=== PATIENT | female | born 1965 | race Caucasian/White ===

== ENCOUNTER 2020-04-11 11:34 | Outpatient (REF) | payer MEDICARE, MEDICAID, SELFPAY ==
[2020-04-11 12:49] LABS: MANUAL DIFF FLAG NO
[2020-04-11 13:03] LABS: Basophils Absolute Auto 0.1 X10*3/uL (0.0-0.2); Basophils Percent Auto 0.8 % (0-2); Eosinophils Absolute Auto 0.1 X10*3/uL (0.0-0.4); Eosinophils Percent Auto 1.5 % (0-4); Hematocrit 40.7 % (37-47); Hemoglobin 12.7 g/dl (12.0-16.0); Imm Gran Abs Auto 0.02 X10*3/uL (0.00-0.03); Imm Gran Pct Auto 0.3 % (0.0-0.4); Lymphocytes Absolute Auto 2.5 X10*3/uL (1.2-4.9); Lymphocytes Percent Auto 34.4 % (20-40); Mean Corpuscular HGB Conc 31.2 g/dl (31.0-35.0); Mean Corpuscular Hemoglobin 28.3 pg (27.0-33.0); Mean Corpuscular Volume 90.6 fL (80-98); Mean Platelet Volume 10.7 fL (9.4-12.3); Monocytes Absolute Auto 0.5 X10*3/uL (0.1-1.2); Monocytes Percent Auto 7.1 % (2-11); Neutrophils Absolute Auto 4.1 X10*3/uL (2.0-8.3); Neutrophils Percent Auto 55.9 % (45-73); Platelet Count 219 X10*3/uL (160-400); Red Blood Count 4.49 X10*6/uL (4.20-5.50); Red Cell Distribution Width 13.7 % (11.0-16.0); White Blood Count 7.3 X10*3/uL (4.8-10.8)
[2020-04-11 13:20] LABS: Glucose Urine UA NEG (NEG); Leukocyte Esterase Urine NEG (NEG); Nitrite Urine NEG (NEG); Urine Blood NEG (NEG); Urine Ketones NEG (NEG); Urine Protein NEG (NEG-TRACE)
[2020-04-11 13:21] LABS: Alanine Aminotransferase 33 U/L (0-31); Albumin Level 4.5 g/dL (3.5-5.0); Alkaline Phosphatase 45 U/L (39-117); Anion Gap 14 (12-20); Aspartate Amino Transferase 33 U/L (5-31); Bilirubin Total 0.8 mg/dL (0.0-1.0); Blood Urea Nitrogen 13 mg/dL (9-16); Calcium 9.1 mg/dL (8.4-10.2); Carbon Dioxide 27 mmol/L (22-29); Chloride 103 mmol/L (96-108); Cholesterol 152 mg/dL; Estimated Glomerular Filt Rate > 60; Glucose Fasting 81 mg/dL (60-99); HDL Cholesterol 40 mg/dL; LDL Cholesterol Calculated 76 mg/dl; Potassium 4.2 mmol/l (3.3-5.1); Sodium 140 mmol/L (135-145); Total Protein 7.3 g/dL (6.5-8.0); Triglycerides 182 mg/dL
[2020-04-11 13:22] LABS: Appearance Urine CLEAR; Color Urine YELLOW
[2020-04-11 13:44] LABS: TSH reflex Free T4 2.16 mIU/mL (0.32-4.0); Vitamin D 25-OH Total 11.5 ng/mL (>30)
[2020-04-11 13:45] LABS: Erythrocyte Sedimentation Rate 9 MM/HR (0-20)
[2020-04-11 14:03] LABS: Folate 9.1 ng/mL (> or = 4.0); Vitamin B12 221 pg/mL (200-900)
== END 2020-04-11 11:35 | disposition home or self-care (01) ==
LOC: HO.LAB 11:34
PROVIDERS: PCP Internal Medicine; Visit Provider Internal Medicine
DX: I10 Essential (primary) hypertension (principal); E78.5 Hyperlipidemia, unspecified; R73.01 Impaired fasting glucose; I25.10 Atherosclerotic heart disease of native coronary artery without angina pectoris; E53.8 Deficiency of other specified B group vitamins; R41.3 Other amnesia; K31.9 Disease of stomach and duodenum, unspecified; M51.37 Other intervertebral disc degeneration, lumbosacral region; M50.20 Other cervical disc displacement, unspecified cervical region; R32 Unspecified urinary incontinence; E55.9 Vitamin D deficiency, unspecified; E66.9 Obesity, unspecified
CPT/HCPCS: 36415; 80053; 80061; 81003; 82306; 82607; 82746; 84443; 85025; 85652

== ENCOUNTER → 2020-07-18 14:37 | Outpatient (BNVA) | payer MEDICARE, MEDICAID, SELFPAY | PROVIDERS: PCP Internal Medicine; Visit Provider Internal Medicine | DX: R00.2 Palpitations (principal); R42 Dizziness and giddiness; R07.89 Other chest pain; I10 Essential (primary) hypertension; I25.3 Aneurysm of heart | CPT/HCPCS: 93005; 99212 ==

== ENCOUNTER 2021-01-22 11:49 | Outpatient (REF) | payer MEDICARE, MEDICAID, SELFPAY ==
--- NOTE | ~2021-01-22 | XR_ITS ---
EXAMINATION: XR MANDIBLE CLINICAL INFORMATION: Jaw pain. COMPARISON: None TECHNIQUE: Four views of the mandible were obtained. FINDINGS: No acute finding on the imaging submitted. The oblique imaging is suboptimal. The mandibular condyles are not adequately evaluated. They do appear to lie within the fossa. XR/XR mandible <4V IMPRESSION: Limited evaluation. There is certainly no acute finding seen here. The condyles cannot be adequately evaluated for degeneration but appear to lie within the condylar fossa s
[2021-01-22 12:58] LABS: MANUAL DIFF FLAG NO
[2021-01-22 13:04] LABS: Basophils Percent Auto 0.4 % (0-2); Eosinophils Absolute Auto 0.2 X10*3/uL (0.0-0.4); Eosinophils Percent Auto 1.6 % (0-4); Hematocrit 38.1 % (37-47); Hemoglobin 12.2 g/dl (12.0-16.0); Imm Gran Abs Auto 0.04 X10*3/uL (0.00-0.03); Imm Gran Pct Auto 0.4 % (0.0-0.4); Lymphocytes Absolute Auto 2.6 X10*3/uL (1.2-4.9); Lymphocytes Percent Auto 27.9 % (20-40); Mean Corpuscular Volume 87.6 fL (80-98); Mean Platelet Volume 10.3 fL (9.4-12.3); Monocytes Absolute Auto 0.6 X10*3/uL (0.1-1.2); Monocytes Percent Auto 6.7 % (2-11); Neutrophils Absolute Auto 5.9 X10*3/uL (2.0-8.3); Platelet Count 242 X10*3/uL (160-400); Red Blood Count 4.35 X10*6/uL (4.20-5.50); Red Cell Distribution Width 13.6 % (11.0-16.0); White Blood Count 9.4 X10*3/uL (4.8-10.8)
[2021-01-22 13:26] LABS: Alanine Aminotransferase 22 U/L (0-31); Albumin Level 4.7 g/dL (3.5-5.0); Alkaline Phosphatase 54 U/L (39-117); Anion Gap 13 (12-20); Aspartate Amino Transferase 22 U/L (5-31); Bilirubin Total 0.4 mg/dL (0.0-1.0); Blood Urea Nitrogen 15 mg/dL (9-16); Calcium 9.7 mg/dL (8.4-10.2); Carbon Dioxide 25 mmol/L (22-29); Chloride 104 mmol/L (96-108); Cholesterol 145 mg/dL; Estimated Glomerular Filt Rate > 60; Glucose Fasting 74 mg/dL (60-99); HDL Cholesterol 39 mg/dL; LDL Cholesterol Calculated 78 mg/dl; Sodium 138 mmol/L (135-145); Total Protein 7.8 g/dL (6.5-8.0); Triglycerides 143 mg/dL
[2021-01-22 13:41] LABS: Vitamin D 25-OH Total 9.7 ng/mL (>30)
[2021-01-22 14:34] LABS: Folate 11.1 ng/mL (> or = 4.0); Vitamin B12 229 pg/mL (200-900)
== END 2021-01-22 11:50 | disposition home or self-care (01) ==
LOC: HO.LAB 11:49
PROVIDERS: PCP Internal Medicine; Visit Provider Internal Medicine
DX: R68.84 Jaw pain (principal); E55.9 Vitamin D deficiency, unspecified; E78.2 Mixed hyperlipidemia; I10 Essential (primary) hypertension; I25.10 Atherosclerotic heart disease of native coronary artery without angina pectoris; R73.01 Impaired fasting glucose; E53.8 Deficiency of other specified B group vitamins; K21.9 Gastro-esophageal reflux disease without esophagitis
CPT/HCPCS: 36415; 70100; 80053; 80061; 82306; 82607; 82746; 85025

== ENCOUNTER 2021-10-22 07:12 | Outpatient (REF) | payer MEDICARE, MEDICAID, SELFPAY ==
[2021-10-22 07:48] LABS: MANUAL DIFF FLAG NO
[2021-10-22 08:34] LABS: Basophils Absolute Auto 0.1 X10*3/uL (0.0-0.2); Basophils Percent Auto 0.5 % (0-2); Eosinophils Absolute Auto 0.1 X10*3/uL (0.0-0.4); Eosinophils Percent Auto 1.5 % (0-4); Hematocrit 36.7 % (37.0-47.0); Hemoglobin 11.4 g/dl (12.0-16.0); Imm Gran Abs Auto 0.03 X10*3/uL (0.00-0.03); Imm Gran Pct Auto 0.3 % (0.0-0.4); Lymphocytes Absolute Auto 2.1 X10*3/uL (1.2-4.9); Lymphocytes Percent Auto 22.3 % (20-40); Mean Corpuscular HGB Conc 31.1 g/dl (31.0-35.0); Mean Corpuscular Hemoglobin 26.8 pg (27.0-33.0); Mean Corpuscular Volume 86.2 fL (80.0-98.0); Monocytes Absolute Auto 0.6 X10*3/uL (0.1-1.2); Monocytes Percent Auto 6.5 % (2-11); Neutrophils Absolute Auto 6.5 x10*3/uL (2.0-8.3); Neutrophils Percent Auto 68.9 % (45-73); Platelet Count 178 X10*3/uL (160-400); Red Blood Count 4.26 X10*6/uL (4.20-5.50); Red Cell Distribution Width 13.9 % (11.0-16.0); White Blood Count 9.4 X10*3/uL (4.8-10.8)
[2021-10-22 08:46] LABS: Appearance Urine HAZY; Color Urine YELLOW; Glucose Urine UA NEG (NEG); Leukocyte Esterase Urine 1+ (NEG); Nitrite Urine POS (NEG); UACC Culture Trigger YES; Urine Blood NEG (NEG); Urine Ketones NEG (NEG); Urine Protein NEG (NEG-TRACE)
[2021-10-22 09:07] LABS: Bacteria Urine 4+ /LPF; Squamous Epithelial Cell Urine 1+ /LPF
[2021-10-22 09:08] LABS: RBC Urine 0 /HPF (0)
[2021-10-22 09:09] LABS: Alanine Aminotransferase 21 U/L (0-31); Albumin Level 4.2 g/dL (3.5-5.0); Alkaline Phosphatase 37 U/L (39-117); Anion Gap 14 (12-20); Aspartate Amino Transferase 31 U/L (5-31); Bilirubin Total 0.3 mg/dL (0.0-1.0); Blood Urea Nitrogen 13 mg/dL (9-16); Calcium 9.4 mg/dL (8.4-10.2); Carbon Dioxide 22 mmol/L (22-29); Chloride 107 mmol/L (96-108); Cholesterol 148 mg/dL; Estimated Glomerular Filt Rate 57; Glucose Fasting 98 mg/dL (60-99); HDL Cholesterol 37 mg/dL; LDL Cholesterol Calculated 86 mg/dl; Potassium 4.6 mmol/L (3.3-5.1); Sodium 138 mmol/L (135-145); Triglycerides 126 mg/dL
[2021-10-22 09:32] LABS: TSH reflex Free T4 4.38 uIU/mL (0.32-4.0)
[2021-10-22 09:39] LABS: Folate 8.5 ng/mL (> or = 4.0); Vitamin B12 175 pg/mL (200-900)
[2021-10-22 10:35] LABS: Free T4 (Free Thyroxine) 0.74 ng/dL (0.71-1.85)
== END 2021-10-22 07:13 | disposition home or self-care (01) ==
LOC: HO.LAB 07:12
PROVIDERS: PCP Internal Medicine; Visit Provider Internal Medicine
DX: I10 Essential (primary) hypertension (principal); E53.8 Deficiency of other specified B group vitamins; E55.9 Vitamin D deficiency, unspecified; E78.00 Pure hypercholesterolemia, unspecified; R82.71 Bacteriuria; B96.1 Klebsiella pneumoniae [K. pneumoniae] as the cause of diseases classified elsewhere
CPT/HCPCS: 36415; 80053; 80061; 81001; 82306; 82607; 82746; 84439; 84443; 85025; 87086; 87088; 87186

== ENCOUNTER 2022-04-24 07:53 | Outpatient (REF) | payer MEDICARE, MEDICAID, SELFPAY ==
--- NOTE | ~2022-04-24 | XR_ITS ---
EXAMINATION: XR CHEST CLINICAL INFORMATION: Bronchitis COMPARISON: Previous chest x-ray most recent February 2015 TECHNIQUE: 2 views of the chest were obtained. FINDINGS: The cardiac and mediastinal contours are stable. The lungs are clear. There is no pleural effusion or pneumothorax. There are degenerative changes of the thoracic spine. XR/XR chest 2V IMPRESSION: No evidence for acute disease in the chest.
[2022-04-24 08:03] LABS: MANUAL DIFF FLAG NO
[2022-04-24 08:21] LABS: Basophils Absolute Auto 0.1 X10*3/uL (0.0-0.2); Basophils Percent Auto 0.8 % (0-2); Eosinophils Absolute Auto 0.2 X10*3/uL (0.0-0.4); Eosinophils Percent Auto 1.8 % (0-4); Hematocrit 38.9 % (37.0-47.0); Hemoglobin 12.4 g/dl (12.0-16.0); Imm Gran Abs Auto 0.04 X10*3/uL (0.00-0.03); Imm Gran Pct Auto 0.5 % (0.0-0.4); Lymphocytes Percent Auto 47.2 % (20-40); Mean Corpuscular HGB Conc 31.9 g/dl (31.0-35.0); Mean Corpuscular Hemoglobin 28.2 pg (27.0-33.0); Mean Corpuscular Volume 88.4 fL (80.0-98.0); Mean Platelet Volume 10.8 fL (9.4-12.3); Monocytes Absolute Auto 0.7 X10*3/uL (0.1-1.2); Neutrophils Absolute Auto 3.5 x10*3/uL (2.0-8.3); Neutrophils Percent Auto 41.7 % (45-73); Platelet Count 227 X10*3/uL (160-400); Red Cell Distribution Width 14.4 % (11.0-16.0); White Blood Count 8.5 X10*3/uL (4.8-10.8)
[2022-04-24 09:09] LABS: Appearance Urine Clear; Color Urine Yellow; Glucose Urine UA Negative (Negative); Leukocyte Esterase Urine Trace (Negative); Nitrite Urine Positive (Negative); PH 6.5 (5.0-9.0); UMIC TRIGGER UACC YES; Urine Blood Negative (Negative); Urine Ketones Negative (Negative); Urine Protein Negative (Neg-Trace)
[2022-04-24 09:12] LABS: Alanine Aminotransferase 63 U/L (0-31); Albumin Level 4.3 g/dL (3.5-5.0); Alkaline Phosphatase 58 U/L (39-117); Anion Gap 15 (12-20); Aspartate Amino Transferase 69 U/L (5-31); Bilirubin Total 0.7 mg/dL (0.0-1.0); Blood Urea Nitrogen 12 mg/dL (9-16); Calcium 9.1 mg/dL (8.4-10.2); Carbon Dioxide 22 mmol/L (22-29); Chloride 106 mmol/L (96-108); Cholesterol 136 mg/dL; Estimated Glomerular Filt Rate > 60; Glucose Fasting 89 mg/dL (60-99); HDL Cholesterol 36 mg/dL; LDL Cholesterol Calculated 67 mg/dl; Potassium 4.8 mmol/L (3.3-5.1); Sodium 138 mmol/L (135-145); TSH reflex Free T4 5.92 uIU/mL (0.32-4.0); Total Protein 7.2 g/dL (6.5-8.0); Triglycerides 169 mg/dL; Vitamin D 25-OH Total 13.7 ng/mL (>30)
[2022-04-24 09:14] LABS: Bacteria Urine 4+ (None Seen); RBC Urine 0-2 /HPF (0-2); Squamous Epithelial Cell Urine 0-2 /HPF (0-2); UACC Culture Trigger YES; WBC Urine 0-5 /HPF (0-5)
[2022-04-24 09:48] LABS: Free T4 (Free Thyroxine) 0.79 ng/dL (0.71-1.85)
== END 2022-04-24 07:54 | disposition home or self-care (01) ==
LOC: HO.XRAY 07:53
PROVIDERS: Absent Provider Physician Assistant; PCP Internal Medicine; Visit Provider Internal Medicine
DX: E55.9 Vitamin D deficiency, unspecified (principal); E78.00 Pure hypercholesterolemia, unspecified; I10 Essential (primary) hypertension; J40 Bronchitis, not specified as acute or chronic; R79.89 Other specified abnormal findings of blood chemistry; R82.71 Bacteriuria; B96.1 Klebsiella pneumoniae [K. pneumoniae] as the cause of diseases classified elsewhere
CPT/HCPCS: 36415; 71046; 80053; 80061; 81001; 81003; 82306; 84439; 84443; 85025; 87086; 87088; 87186

== ENCOUNTER 2022-10-27 07:05 | Outpatient (REF) | payer MEDICARE, MEDICAID, SELFPAY ==
--- NOTE | ~2022-10-27 | XR_ITS ---
EXAMINATION: XR CHEST CLINICAL INFORMATION: Cough. COMPARISON: Chest x-ray 04/24/2022 TECHNIQUE: 2 views of the chest were obtained. FINDINGS: The lungs are well-expanded and clear of acute process. The heart size and pulmonary vascularity is normal. No gross bony abnormality. XR/XR chest 2V IMPRESSION: Unremarkable chest exam. No change from previous exam of 04/24/2022.
[2022-10-27 08:17] LABS: Alanine Aminotransferase 33 U/L (0-31); Albumin Level 4.3 g/dL (3.5-5.0); Alkaline Phosphatase 53 U/L (39-117); Anion Gap 13 (12-20); Aspartate Amino Transferase 31 U/L (5-31); Bilirubin Total 0.7 mg/dL (0.0-1.0); Blood Urea Nitrogen 12 mg/dL (9-16); Calcium 9.5 mg/dL (8.4-10.2); Carbon Dioxide 24 mmol/L (22-29); Chloride 108 mmol/L (96-108); Cholesterol 148 mg/dL; Estimated Glomerular Filt Rate > 60; Glucose Fasting 112 mg/dL (60-99); HDL Cholesterol 39 mg/dL; LDL Cholesterol Calculated 78 mg/dl; Potassium 4.6 mmol/L (3.3-5.1); Sodium 140 mmol/L (135-145); Triglycerides 155 mg/dL
[2022-10-27 08:35] LABS: TSH reflex Free T4 2.33 uIU/mL (0.32-4.0); Vitamin D 25-OH Total 21.7 ng/mL (>30)
[2022-10-27 10:41] LABS: Appearance Urine Turbid; Color Urine Dark Yellow; Glucose Urine UA Negative (Negative); Leukocyte Esterase Urine Large (3+) (Negative); Nitrite Urine Positive (Negative); PH >= 9.0 (5.0-9.0); UMIC TRIGGER UACC YES; Urine Blood Negative (Negative); Urine Ketones Negative (Negative); Urine Protein 30 (1+) mg/dL (Neg-Trace)
[2022-10-27 10:55] LABS: Bacteria Urine 4+ (None Seen); Other Crystals Urine Present; RBC Urine 0-2 /HPF (0-2); Squamous Epithelial Cell Urine 0-2 /HPF (0-2); UACC Culture Trigger YES; WBC Urine 21-50 /HPF (0-5)
== END 2022-10-27 07:06 | disposition home or self-care (01) ==
LOC: HO.LAB 07:05
PROVIDERS: PCP Internal Medicine; Visit Provider Nurse Practitioner Family
DX: E55.9 Vitamin D deficiency, unspecified (principal); R05.8 Other specified cough; N39.0 Urinary tract infection, site not specified; R30.0 Dysuria; R05.9 Cough, unspecified; R94.6 Abnormal results of thyroid function studies; E66.9 Obesity, unspecified; E78.2 Mixed hyperlipidemia
CPT/HCPCS: 36415; 71046; 80053; 80061; 81001; 82306; 84443; 87086; 87088; 87186

== ENCOUNTER 2023-04-02 11:29 | Outpatient (AMB) | payer MEDICARE, MEDICAID, SELFPAY ==
[2023-04-02 11:31] VITALS: BP 122/80; PULSE 64; O2SAT 96; BMI 37.0
--- NOTE | 2023-04-02 11:31 | MHC.PC.OV ---
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 Accompanied by: Self / Same As Patient Allergies Sulfa (Sulfonamide Antibiotics) Allergy (Unknown, Verified 04/03/23 06:29) Unknown aripiprazole [From ABILIFY] Adverse Reaction (Severe, Verified 04/03/23 06:29) hallucinations ketorolac [From Toradol] Adverse Reaction (Intermediate, Verified 04/03/23 06:29) shakes/tremors Medication List - Last Reconciled 04/03/23 by Tu Sheffield MD amitriptyline 100 mg PO BEDTIME amlodipine 10 mg PO DAILY amoxicillin 875 mg PO BID 7 days amoxicillin-pot clavulanate 875-125 mg 1 tab PO BID 7 days aspirin 81 mg PO DAILY 90 days atenolol 50 mg PO DAILY baclofen 20 mg PO TID-QID PRN 90 days [Bladder Control Pads Extra Absorb (Incontinence pads) As directed TID-QID] blood pressure monitor As directed buspirone 5 mg PO BID 90 days cholecalciferol (vitamin D3) 50 mcg PO DAILY cyanocobalamin (vitamin B-12) ER 1,000 mcg PO DAILY famotidine 20 mg PO DAILY 90 days fenofibrate micronized 134 mg PO DAILY hospital bed As directed levofloxacin 500 mg PO DAILY losartan 100 mg PO DAILY miscellaneous medical supply 1 ea miscellaneous DAILY miscellaneous medical supply 1 ea miscellaneous DAILY miscellaneous medical supply 2 ea miscellaneous .QIDHS miscellaneous medical supply 1 ea miscellaneous TID-QID morphine ER 60 mg PO Q12H 28 days nitrofurantoin monohyd/m-cryst 100 mg 100 mg PO .QD 90 days [OXYGEN Use at 2 LPM per nasal cannula As directed] pantoprazole 40 mg PO DAILY 90 days Percocet 10-325 mg (oxycodone-acetaminophen) 1 tab PO Q6H PRN 28 days NS potassium chloride ER 10 mEq PO BID promethazine 25 mg PO TID PRN 30 days sertraline 200 mg (2 x 100 mg) PO DAILY 90 days simvastatin 5 mg PO BEDTIME 90 days spironolactone 25 mg PO DAILY 90 days [WIG As directed] Tobacco use date assessed: 04/02/23 Dental Screening Dental Screen Date: 04/02/23 Did you have a dental visit in the last 12 months?: No Did you have a dental problem in the last 6 months where you did not have access to dental care?: No Was dental information given to patient?: No HPI pain on right side of cheek/face HPI Details Patient comes in today complaining of experiencing on and off electric-like shock sensations on the right side of her face x 1 week Notes that the eyesight in her right eye has been declining over the past month or so but she denies any eye pain - does not know if this is related to her right facial symptoms or not States that the right side of her face looks slightly puffy lately She still has chronic OJEDA - notes that these have been occurring more frequently lately and more often on the right side than before Is not sure what to make of her symptoms and she is very anxious about these She denies any dizziness Denies any chest pains, no shortness of breath No nausea /vomiting, no abdominal pain No change in bowel habits noted States that she will be needing her Percocet Rx refilled today [facility] Medical History Atrial septal aneurysm Palpitations Obesity (BMI 30-39.9) Depression Anxiety Posttraumatic stress disorder Insomnia Urinary incontinence Memory impairment Vitamin D deficiency Osteoarthritis Allergic rhinitis GERD without esophagitis Bulging of cervical intervertebral disc Vitamin B12 deficiency Migraine Coronary atherosclerosis Impaired fasting glucose Mixed hyperlipidemia Benign essential hypertension Degeneration of lumbar or lumbosacral intervertebral disc Surgical History History of lumbar surgery History of laparoscopic cholecystectomy History of total abdominal hysterectomy and bilateral salpingo-oophorectomy (~1997) History of appendectomy Family History Father Stroke Cancer CVD (cardiovascular disease) Mother CVD (cardiovascular disease) Stroke Sister Non-small cell lung cancer Brother Glioma of brain Other Mental health problem Social History Housing: Apartment Alcohol intake: never Patient Tobacco Use Status: Former Tobacco user Tobacco use type: Cigarette e-Cigarette/Vaping Use: Never Used Second Hand Smoke Exposure: Yes service: No Current occupational status: disabled Cognitive needs: Yes Hearing needs: No Vision needs: Yes Questionnaire PHQ-9 Over the last 2 weeks, how often have you been bothered by any of the following problems? 1. Little interest or pleasure in doing things: not at all 2. Feeling down, depressed, or hopeless: not at all 3. Trouble falling or staying asleep, or sleeping too much: not at all 4. Feeling tired or having little energy: not at all 5. Poor appetite or overeating: not at all 6. Feeling bad about yourself - or that you are a failure or have let yourself or your family down: not at all 7. Trouble concentrating on things, such as reading the newspaper or watching television: not at all 8. Moving or speaking so slowly that other people could have noticed. Or the opposite - being so fidgety or restless that you have been moving around a lot more than usual: not at all 9. Thoughts that you would be better off or of hurting yourself in some way: not at all Total score: 0 Depression Screening Interpretation: Negative (is on Rx) Depression Screening Done: Yes 21216 - PHQ-9 Billing: Yes Source: Developed by Drs. Babatunde Wagner, Deana Hart, Vernon Medina and colleagues, with an educational janet from [employer]. Thrive Questionnaire Date Thrive assessed: 04/02/23 I am a: Patient What is your living situation today?: I have a steady place to live Within the past 12 months, did the food you bought not last and you didn't have the money to get more?: Never true Within the past 12 months, did you worry whether your food would run out before you got money to buy more?: Never true Do you have trouble paying for medicines?: No Do you have trouble getting transportation to medical appointments?: No Do you have trouble paying your heating and electricity bill?: No Do you have trouble taking care of your child, family member or friend?: No Do you have trouble with day-to-day activities such as bathing, preparing meals, shopping, managing finances, etc.?: No Are you currently unemployed and looking for a job?: No Are you interested in more education?: No Please select the resources that you would like help with: None Currently or been in a relationship where the following occur: no concerns reported AUDIT C Alcohol Use Questionnaire (AUDIT-C) 1. How often do you have a drink containing alcohol?: Never Total Score: 0 Score Reviewed/Action Taken: Yes KANDI-7 AMB Questionnaire KANDI-7 Date KANDI - 7 assessed: 04/02/23 Feeling nervous, anxious, or on edge: 2 = More than half the days Not being able to stop or control worryin = Not at all Worrying too much about different things: 1 = Several days Trouble relaxin = Not at all Being so restless that it is hard to sit still: 0 = Not at all Becoming easily annoyed or irritable: 2 = More than half the days Feeling afraid as if something awful might happen: 1 = Several days Total KANDI-7 score (0-4 normal; 5-9 mild; 10-14 moderate; 15-21 severe): 6 Source: Developed by Drs. Babatunde Wagner, Deana Hart, Vernon Medina and colleagues, with an educational janet from [employer]. KANDI-7 Assessment Billing KANDI-7 Assessment Tool: KANDI-7 Assessment 07532 Review of Systems Const Reports fatigue, Denies fever(s) and Reports headache(s) (on and off, more often on the right side of her head lately) Eyes Reports blurry vision (in the right eye) ENT Denies dysphagia, Denies dizziness, Denies otalgia, Reports headache(s) (on and off, more often on the right side of her head lately), Reports neck pain, Denies odynophagia and Denies sore throat Card Denies chest pain, Denies irregular heart rhythm, Denies palpitations and Reports dyspnea on exertion (mild) Resp Reports cough (recurrent, coughs up minimal yellowish phlegm), Reports dyspnea on exertion (mild) and Denies wheezing GI Denies abdominal pain, Denies constipation, Denies dysphagia, Denies diarrhea, Denies nausea, Denies odynophagia and Denies vomiting Denies difficulty voiding, Denies nocturia, Denies dysuria, Reports urinary incontinence and Reports urinary urgency Musc Reports back pain (increased) and Reports neck pain Skin/Breast Denies rash Neuro Denies dizziness, Reports headache(s) (on and off, more often on the right side of her head lately), Reports radicular pain (in the left lower extremity) and Reports paresthesias (over the right side of her face and head for the past week) Endo Reports fatigue and Denies palpitations Aller/Immun Denies wheezing Physical exam (Primary Care) Vital Signs: Last Vital Signs Pulse 64 04/02/23 11:31 BP 122/80 04/02/23 11:31 Pulse Ox 96 04/02/23 11:31 Oxygen Delivery Method Room Air 04/02/23 11:31 BMI result Body Mass Index 37.0 Tobacco/Smoking Status: Tobacco use Status Tobacco use date assessed 04/02/23 04/02/23 11:37 Patient Tobacco Use Status Former Tobacco user 04/02/23 11:37 Tobacco use type Cigarette 04/02/23 11:37 e-Cigarette/Vaping Use Never Used 04/02/23 11:37 PHQ-9: PHQ-9 Score PHQ-9: Total score 0 04/02/23 12:20 Depression Screening Interpretation: Negative (is on Rx) Thrive Assessment: Date of Thrive Assessment Date Thrive assessed 04/02/23 04/02/23 11:37 Currently or been in a relationship where the following occur: no concerns reported Const General: no acute distress and alert HENMT Other: (+) slight congestion/swelling noted on the right side of the face Ears: TM's normal bilaterally and EAC's normal Throat: Yes posterior oropharynx normal and Yes tonsils normal (no TP congestion) Neck Neck: Yes no lymphadenopathy and Yes supple Resp Auscultation: clear to auscultation bilaterally, no rales and no wheezes Cardio Rate: regular rate Rhythm: regular rhythm Heart sounds: no murmurs GI Palpation (GI): Soft to palpation and nontender Auscultation: normal bowel sounds Back/Spine/Pelvis Cervical Spine: Cervical spine tenderness Thoracic/Lumbar Spine: lumbar spinal tenderness (chronic) Skin Rashes: no rashes Extrem General: Yes no clubbing, cyanosis or edema Assessment and Plan Assessment & Plan (1) Paresthesia: Code(s): R20.2 - Paresthesia of skin Plan: Involving the right side of the head and face Will send patient for some labs, including a Lyme disease titer, ESR and HSV titers CHIQUITA for further evaluation Is advised that further treatment or recommendations will be provided once her lab results are available for review before the weekend (2) Coronary atherosclerosis: Code(s): I25.10 - Atherosclerotic heart disease of [place] coronary artery without angina pectoris Qualifiers: Coronary Disease-Associated Artery/Lesion type: [place] artery [place] vs. transplanted heart: [place] heart Associated angina: without angina Qualified Code(s): I25.10 - Atherosclerotic heart disease of [place] coronary artery without angina pectoris Plan: Coronary CTA done at [facility] a couple of years ago?reportedly came out normal Patient also has had numerous cardiac workups done over the past couple of years, including stress testing - all of her tests have come back normal so far Continue Aspirin 81 mg QD Follow-up with cardiology as scheduled (3) Benign essential hypertension: Code(s): I10 - Essential (primary) hypertension Plan: Reinforced low-sodium diet -? goal is systolic BP of at least 120 to 130 mm or less Continue Amlodipine 10 mg QD, Losartan 100 mg QD, Atenolol 50 mg QD and Spironolactone 25 mg QD (4) Degeneration of lumbar or lumbosacral intervertebral disc: Code(s): M51.37 - Other intervertebral disc degeneration, lumbosacral region Plan: Reinforced activity and weight lifting restrictions to avoid aggravating her back pain Continue Morphine ER 60 mg every 12 hours and? Percocet 10-325 mg 1 tablet 3 times a day as needed for breakthrough pain (Rx refilled) (5) Migraine: Code(s): G43.909 - Migraine, unspecified, not intractable, without status migrainosus Qualifiers: Migraine type: unspecified Status migrainosus presence: without status migrainosus Intractability: not intractable Qualified Code(s): G43.909 - Migraine, unspecified, not intractable, without status migrainosus Plan: Continue Fioricet 1 tablet 2 to 3 times a day as needed Patient is also on Amitriptyline 100 mg daily at bedtime for headache prophylaxis Follow-up with Neurology as scheduled (6) Vitamin B12 deficiency: Code(s): E53.8 - Deficiency of other specified B group vitamins Plan: Continue Vitamin B12 tablets 1000 mg QD Will recheck her Vitamin B12 level as scheduled next month for follow up (7) Allergic rhinitis: Code(s): J30.9 - Allergic rhinitis, unspecified Qualifiers: Allergic rhinitis trigger: pollen Allergic rhinitis seasonality: unspecified Qualified Code(s): J30.1 - Allergic rhinitis due to pollen Plan: Continue Loratadine 10 mg QD PRN and Fluticasone nasal spray QD PRN (8) Insomnia: Code(s): G47.00 - Insomnia, unspecified Qualifiers: Insomnia type: unspecified Qualified Code(s): G47.00 - Insomnia, unspecified Plan: Sleep hygiene reinforced Continue Amitriptyline 100 mg daily at bedtime (9) Posttraumatic stress disorder: Code(s): F43.10 - Post-traumatic stress disorder, unspecified Plan: Continue Sertraline 100 mg 2 tablets daily (10) Anxiety: Code(s): F41.9 - Anxiety disorder, unspecified Plan: Continue Lorazepam 2 mg once a day in AM as needed Sertraline also helps with her anxiety (11) Depression: Code(s): F32.9 - Major depressive disorder, single episode, unspecified Qualifiers: Depression Type: major depressive disorder Major depression recurrence: recurrent Active/Remission status: currently active Major depression episode severity: unspecified Qualified Code(s): F33.9 - Major depressive disorder, recurrent, unspecified Plan: Continue Sertraline 200 mg QD Follow-up with Psychiatry as scheduled (12) Obesity (BMI 30-39.9): Code(s): E66.9 - Obesity, unspecified Plan: Reinforced diet/exercise as tolerated/lose weight although her activity and exercise tolerance, which used to be already low/poor, is mostly non-existent now since her recent bout with COVID and her current hypoxemia issues Plan Follow up as scheduled next month Orders: Orders HSV I and II,[facility] 04/02/23 R20.2 - Paresthesia of skin Basic Metabolic Panel 04/02/23 R20.2 - Paresthesia of skin Lyme IgG/IgM w/reflex to WB 04/02/23 R20.2 - Paresthesia of skin, W57.XXXA - Bitten or stung by nonvenomous insect and other nonvenomous arthropods, initial encounter Erythrocyte Sedimentation Rate 04/02/23 M79.7 - Fibromyalgia, R20.2 - Paresthesia of skin Vitamin B12 and Folate 04/02/23 E53.8 - Deficiency of other specified B group vitamins, R20.2 - Paresthesia of skin Complete Blood Count Auto Diff 04/02/23 I10 - Essential (primary) hypertension, R20.2 - Paresthesia of skin Coding Level of Care Code Est Pt Level 4 (90008) Diagnoses Paresthesia R20.2 Atherosclerosis of [place] coronary artery of [place] heart without angina pectoris I25.10 Coronary Disease-Associated Artery/Lesion type: [place] artery [place] vs. transplanted heart: [place] heart Associated angina: without angina Benign essential hypertension I10 Degeneration of lumbar or lumbosacral intervertebral disc M51.37 Migraine without status migrainosus, not intractable, unspecified migraine type G43.909 Migraine type: unspecified Status migrainosus presence: without status migrainosus Intractability: not intractable Vitamin B12 deficiency E53.8 Allergic rhinitis due to pollen, unspecified seasonality J30.1 Allergic rhinitis trigger: pollen Allergic rhinitis seasonality: unspecified Insomnia, unspecified type G47.00 Insomnia type: unspecified Posttraumatic stress disorder F43.10 Anxiety F41.9 Episode of recurrent major depressive disorder, unspecified depression episode severity F33.9 Depression Type: major depressive disorder Major depression recurrence: recurrent Active/Remission status: currently active Major depression episode severity: unspecified Obesity (BMI 30-39.9) E66.9 Additional Codes KANDI-7 Assessment Billing - KANDI-7 Assessment Tool: KANDI-7 Assessment [id number] ([id number])
== END 2023-04-02 12:25 | disposition home or self-care (01) ==
PROVIDERS: PCP Internal Medicine; Visit Provider Internal Medicine
DX: R20.2 Paresthesia of skin (principal); I25.10 Atherosclerotic heart disease of native coronary artery without angina pectoris; I10 Essential (primary) hypertension; F33.9 Major depressive disorder, recurrent, unspecified; M51.37 Other intervertebral disc degeneration, lumbosacral region; G43.909 Migraine, unspecified, not intractable, without status migrainosus; E53.8 Deficiency of other specified B group vitamins; J30.1 Allergic rhinitis due to pollen; G47.00 Insomnia, unspecified; F43.10 Post-traumatic stress disorder, unspecified; F41.9 Anxiety disorder, unspecified; E66.9 Obesity, unspecified
CPT/HCPCS: 99214

== ENCOUNTER 2023-04-02 12:29 | Outpatient (REF) | payer MEDICARE, MEDICAID, SELFPAY ==
[2023-04-02 12:43] LABS: MANUAL DIFF FLAG NO
[2023-04-02 13:42] LABS: Basophils Absolute Auto 0.1 X10*3/uL (0.0-0.2); Basophils Percent Auto 0.7 % (0-2); Eosinophils Absolute Auto 0.1 X10*3/uL (0.0-0.4); Eosinophils Percent Auto 1.7 % (0-4); Hematocrit 40.6 % (37.0-47.0); Imm Gran Abs Auto 0.03 X10*3/uL (0.00-0.03); Imm Gran Pct Auto 0.4 % (0.0-0.4); Lymphocytes Absolute Auto 2.8 X10*3/uL (1.2-4.9); Lymphocytes Percent Auto 38.2 % (20-40); Mean Corpuscular Hemoglobin 27.6 pg (27.0-33.0); Mean Corpuscular Volume 86.2 fL (80.0-98.0); Mean Platelet Volume 10.6 fL (9.4-12.3); Monocytes Absolute Auto 0.6 X10*3/uL (0.1-1.2); Monocytes Percent Auto 8.1 % (2-11); Neutrophils Absolute Auto 3.7 x10*3/uL (2.0-8.3); Neutrophils Percent Auto 50.9 % (45-73); Platelet Count 218 X10*3/uL (160-400); Red Blood Count 4.71 X10*6/uL (4.20-5.50); Red Cell Distribution Width 14.4 % (11.0-16.0); White Blood Count 7.2 X10*3/uL (4.8-10.8)
[2023-04-02 14:24] LABS: Erythrocyte Sedimentation Rate 13 MM/HR (0-20)
[2023-04-02 14:49] LABS: Folate 10.4 ng/mL (> or = 4.0); Vitamin B12 241 pg/mL (200-900)
[2023-04-02 14:54] LABS: Anion Gap 15 (12-20); Blood Urea Nitrogen 12 mg/dL (9-16); Calcium 10.3 mg/dL (8.4-10.2); Carbon Dioxide 24 mmol/L (22-29); Chloride 106 mmol/L (96-108); Estimated Glomerular Filt Rate > 60; Glucose Random 95 mg/dL (60-115); Potassium 3.8 mmol/L (3.3-5.1); Sodium 141 mmol/L (135-145)
[2023-04-04 02:09] LABS: Lyme Abs Screen <0.90 index
== END 2023-04-02 12:30 | disposition home or self-care (01) ==
LOC: HO.LAB 12:29
PROVIDERS: PCP Internal Medicine; Visit Provider Internal Medicine
DX: M79.7 Fibromyalgia (principal); I10 Essential (primary) hypertension; E53.8 Deficiency of other specified B group vitamins; R20.2 Paresthesia of skin; T14.8XXA Other injury of unspecified body region, initial encounter; W57.XXXA Bitten or stung by nonvenomous insect and other nonvenomous arthropods, initial encounter; Y93.9 Activity, unspecified; Y92.9 Unspecified place or not applicable; Y99.9 Unspecified external cause status
CPT/HCPCS: 36415; 80048; 82607; 82746; 85025; 85652; 86617; 86618

== ENCOUNTER 2023-09-02 11:40 | Outpatient (REF) | payer MEDICARE, MEDICAID, SELFPAY ==
--- NOTE | ~2023-09-02 | MR_ITS ---
EXAMINATION: MR BRAIN WITH AND WITHOUT CONTRAST CLINICAL INFORMATION: Headaches, concern for trigeminal neuralgia, sharp pain along right side of head and face COMPARISON: MRI brain 10/09/2016 TECHNIQUE: MRI of the brain was obtained using routine sequences before and following administration of intravenous contrast. A total of 8.5 mL of Gadavist was administered intravenously. FINDINGS: Please note to this examination is not tailored for assessment of the trigeminal nerves, however there is no prominent or tortuous vessel in the region of the right cisternal trigeminal nerve. No acute infarct. Stable linear hemosiderin staining along the right dorsal external capsule with adjacent gliosis/encephalomalacia, presumably sequela of remote hemorrhage/hemorrhagic infarct. No extra-axial fluid collection. Slightly progressed mild global cerebral volume loss. Patchy T2 FLAIR hyperintense foci in the subcortical and periventricular white matter, nonspecific but presumably mild chronic microangiopathy. Redemonstrated faint intrinsic T1 shortening within the bilateral basal ganglia and substantia nigra, noting motion artifact limits assessment. Stable developmental venous anomalies within the right frontoparietal and left parietal lobes. No significant mass effect or herniation pattern. The intracranial dural venous sinus and arterial flow voids are preserved. Normal appearance of the midline structures. The orbits are grossly unremarkable. The paranasal sinuses and mastoids are well aerated. 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 MR/MR head/brain wo/w con IMPRESSION: 1. Please note this examination is not tailored for assessment of the trigeminal nerves, however there is no prominent/tortuous vessel in the region of the right cisternal trigeminal nerve. 2. Slightly progressed mild global cerebral volume loss. Nonspecific white matter disease, presumably mild chronic microangiopathy. Redemonstrated linear hemosiderin staining along the right dorsal external capsule with adjacent gliosis/encephalomalacia, presumably sequela of remote hemorrhage/hemorrhagic infarct. 3. Again seen symmetric intrinsic T1 shortening within the bilateral basal ganglia for which differential considerations are broad and include chronic hepatic encephalopathy with manganese deposition, mineralization in the setting of calcium/phosphate metabolism disorders, long-term total parenteral nutrition, chronic gadolinium contrast administration, Crohn's disease, long-term PPI use, or other toxic/metabolic insult.
[2023-09-02] MEDS: gadobutroL 10 ML VIAL IVPUSH (12:15)
== END 2023-09-02 11:41 | disposition home or self-care (01) ==
LOC: HO.MRI 11:40
PROVIDERS: PCP Internal Medicine; Visit Provider Internal Medicine
DX: R20.2 Paresthesia of skin (principal); R68.84 Jaw pain
CPT/HCPCS: 70553; A9585

== ENCOUNTER 2023-10-05 09:52 | Outpatient (AMB) | payer MEDICARE, MEDICAID, SELFPAY ==
[2023-10-05 10:01] VITALS: BP 142/90; PULSE 60; O2SAT 97; BMI 37.2
--- NOTE | 2023-10-05 10:01 | MHC.OFFVIS ---
Vital Signs 10/05/23 10:01 Height 5 ft Weight 190 lb 11.198 oz BMI 37.2 BP 142/90 H Blood Pressure Location Rt brachial Position Sitting Pulse 60 Pulse Source Pulse Oximeter Pulse Oximetry (%) 97 Oxygen Delivery Method Room Air Intake Visit Reasons: Cough Allergies Sulfa (Sulfonamide Antibiotics) Allergy (Unknown, Verified 10/05/23 10:04) Unknown aripiprazole [From ABILIFY] Adverse Reaction (Severe, Verified 10/05/23 10:04) hallucinations ketorolac [From Toradol] Adverse Reaction (Intermediate, Verified 10/05/23 10:04) shakes/tremors HPI HPI Cough: Details: Brandee is pleasant 58 year old female, former smoker with 30 pack year history, quit 12 years ago with underlying HTN, anxiety, GERD, allergic rhinitis and palpitations. She was referred by PCP for pulmonary evaluation for recurrent productive cough. She reports cough has been present for the last few months after having COVID in may, recovering at home after paxlovid. She also notes having COVID in 2020 in which she was intubated due to respiratory failure. She reports sputum is tenacious and brown in color. She denies any antibiotics over the last three months. She also reports hoarseness, dyspnea on exertion and chest congestion. She denies any wheezing. She denies any fevers, chills or sick contacts. Recently she also reports dyspnea has been progressively worsening with associated orthopnea. Denies BLE edema or PND. She reports seasonal allergies, no recent allergy testing. She denies a prior asthma. She denies any occupational exposures. She reports sister and father, smokers, with lung cancer. She reports remote history of uterine/cervical cancer in 1996, s/p hysterectomy. No chemo/radiation. [facility] Medical History Atrial septal aneurysm Palpitations Obesity (BMI 30-39.9) Depression Anxiety Posttraumatic stress disorder Insomnia Urinary incontinence Memory impairment Vitamin D deficiency Osteoarthritis Allergic rhinitis GERD without esophagitis Bulging of cervical intervertebral disc Vitamin B12 deficiency Migraine Coronary atherosclerosis Impaired fasting glucose Mixed hyperlipidemia Benign essential hypertension Degeneration of lumbar or lumbosacral intervertebral disc Surgical History History of lumbar surgery History of laparoscopic cholecystectomy History of total abdominal hysterectomy and bilateral salpingo-oophorectomy (~1997) History of appendectomy Family History Father Stroke Cancer CVD (cardiovascular disease) Mother CVD (cardiovascular disease) Stroke Sister Non-small cell lung cancer Brother Glioma of brain Other Mental health problem Social History Housing: Apartment Alcohol intake: never Patient Tobacco Use Status: Former Tobacco user Tobacco use type: Cigarette e-Cigarette/Vaping Use: Never Used Second Hand Smoke Exposure: Yes service: No Current occupational status: disabled Cognitive needs: Yes Hearing needs: No Vision needs: Yes Review of Systems Const Denies chills, Denies excessive sweating, Denies fever(s), Denies headache(s) and Denies night sweats Eyes Denies dry eyes, Denies irritation and Denies itchy eyes ENT Reports Normal hearing present, Denies headache(s), Denies nasal congestion, Denies post nasal drip and Denies sore throat Card Denies chest pain, Denies chest pain at rest, Denies chest pain with activity, Denies claudication, Denies leg edema and Denies paroxysmal nocturnal dyspnea Resp Denies excessive phlegm production, Denies pain on inspiration, Denies pain with cough, Denies stridor and Denies wheezing Musc Denies myalgias Neuro Reports Normal hearing present and Denies headache(s) Endo Denies excessive sweating Gilmer/Lymph Denies lymphadenopathy Aller/Immun Denies itchy eyes, Denies seasonal rhinorrhea and Denies wheezing Physical Exam Vital Signs: Last Vital Signs Pulse 60 10/05/23 10:01 BP 142/90 H 10/05/23 10:01 Pulse Ox 97 10/05/23 10:01 Oxygen Delivery Method Room Air 10/05/23 10:01 BMI result Body Mass Index 37.2 Const General: cooperative, healthy appearing, comfortable, no acute distress, well developed and alert Nutritional Appearance: obese Orientation/consciousness: patient oriented x3 Limitations: no limitations HEENT Head: Yes normal to inspection, Yes normocephalic and Yes atraumatic Ears: hearing grossly normal bilaterally and external ears normal Eyes General: appearance normal, both eyes and all related structures Eyelids: Yes eyelids normal Sclerae: sclerae normal EOM: EOMs intact bilaterally Neck Neck: Yes normal visual inspection and Yes no lymphadenopathy Lymphatic: no lymphadenopathy noted Chest Chest palpation & inspection: normal inspection of the chest Resp Effort & Inspection: normal respiratory effort, able to speak in complete sentences, no audible wheezes, no cough, no stridor, not tachypneic, no tripod positioning and no use of accessory muscles Auscultation: clear to auscultation bilaterally Cardio Jugular venous distension: no JVD Rate: regular rate Rhythm: regular rhythm Skin Other: warm, dry General skin exam: no rashes or lesions noted Neuro General: patient oriented x3 Cranial nerves: Yes Normal hearing present Cognition (Neuro): normal cognition Gait exam (Neuro): Normal gait present Extrem General: Yes normal to inspection, Yes capillary refill normal, Yes no clubbing, cyanosis or edema and Yes no pedal edema Psych Appearance: grossly normal and well kempt Speech and movement: Normal speech and movement present and Clear speech present Affect: normal affect Attitude: cooperative Thought process: Normal thought process present Thought content: Normal thought content present Insight: Good insight present (Psych) Judgement: Good judgement present (Psych) Assessment & Plan Assessment & Plan (1) Cough: Code(s): R05.9 - Cough, unspecified Category: Medical (2) Dyspnea: Code(s): R06.00 - Dyspnea, unspecified Category: Medical (3) Environmental allergies: Code(s): Z91.09 - Other allergy status, other than to drugs and biological substances Category: Medical (4) Personal history of tobacco use: Code(s): Z87.891 - Personal history of nicotine dependence Category: Social Hx Plan Brandee reports worsening dyspnea on exertion with productive cough. Will empirically treat bronchitic symptoms with doxycycline. She is aware if symptoms do not improve to call the office. She was given a sputum cup if able to produce sputum culture. Will send for PFT to assess for any obstructive defect such as COPD, given smoking history. Will also send for chest CT as she has not had prior imaging and 30 pack year smoking history. Patient noted environmental allergies, with no recent testing, will send for RAST. She reports prior abnormal echo years ago, with reported regurgitation of all valves and not currently under the care of cardiology. Due to worsening dyspnea with associated orthopnea, will send for updated echo. All questions were answered and patient is in agreement of plan. Will follow up to review results or sooner if needed. Orders: Orders Resp Allergy Profile Region I Today Z91.09 - Other allergy status, other than to drugs and biological substances Sputum Cult + Gram stain Today R05.9 - Cough, unspecified PFT pulmonary function test Today R05.9 - Cough, unspecified, R06.00 - Dyspnea, unspecified, Z87.891 - Personal history of nicotine dependence CT chest wo IV con Today Z87.891 - Personal history of nicotine dependence Complete Blood Count Auto Diff Today R06.00 - Dyspnea, unspecified Immunoglobulin E Today Z91.09 - Other allergy status, other than to drugs and biological substances CA echo transthoracic complete Today R06.00 - Dyspnea, unspecified Medications: New doxycycline hyclate 100 mg PO BID 14 caps 0RF
== END 2023-10-05 10:52 | disposition home or self-care (01) ==
LOC: HO.HPS 09:57
PROVIDERS: PCP Internal Medicine; Referring Provider Internal Medicine; Visit Provider Nurse Practitioner Family
DX: R05.9 Cough, unspecified (principal); R06.00 Dyspnea, unspecified; Z91.09 Other allergy status, other than to drugs and biological substances; Z87.891 Personal history of nicotine dependence
CPT/HCPCS: 99204

== ENCOUNTER → 2023-10-05 09:57 | Outpatient (BNVA) | payer MEDICARE, MEDICAID, SELFPAY | PROVIDERS: PCP Internal Medicine; Referring Provider Internal Medicine; Visit Provider Nurse Practitioner Family | DX: R05.9 Cough, unspecified (principal); R06.00 Dyspnea, unspecified; Z91.09 Other allergy status, other than to drugs and biological substances; Z87.891 Personal history of nicotine dependence | CPT/HCPCS: 99202 ==

== ENCOUNTER 2023-10-28 08:01 | Outpatient (REF) | payer MEDICARE, MEDICAID, SELFPAY ==
[2023-10-28 08:17] LABS: MANUAL DIFF FLAG NO
[2023-10-28 08:34] LABS: Basophils Absolute Auto 0.1 X10*3/uL (0.0-0.2); Basophils Percent Auto 0.8 % (0-2); Eosinophils Absolute Auto 0.2 X10*3/uL (0.0-0.4); Eosinophils Percent Auto 2.3 % (0-4); Hematocrit 37.8 % (37.0-47.0); Imm Gran Abs Auto 0.03 X10*3/uL (0.00-0.03); Imm Gran Pct Auto 0.4 % (0.0-0.4); Lymphocytes Absolute Auto 2.2 X10*3/uL (1.2-4.9); Lymphocytes Percent Auto 26.2 % (20-40); Mean Corpuscular HGB Conc 31.7 g/dl (31.0-35.0); Mean Corpuscular Hemoglobin 27.7 pg (27.0-33.0); Mean Corpuscular Volume 87.3 fL (80.0-98.0); Mean Platelet Volume 10.8 fL (9.4-12.3); Monocytes Absolute Auto 0.6 X10*3/uL (0.1-1.2); Monocytes Percent Auto 7.6 % (2-11); Neutrophils Absolute Auto 5.2 x10*3/uL (2.0-8.3); Neutrophils Percent Auto 62.7 % (45-73); Platelet Count 191 X10*3/uL (160-400); Red Blood Count 4.33 X10*6/uL (4.20-5.50); Red Cell Distribution Width 14.2 % (11.0-16.0); White Blood Count 8.3 X10*3/uL (4.8-10.8)
[2023-11-11 12:18] LABS: Class Alternaria alternata 0; Class Aspergillus fumigatus 0; Class Bermuda Grass 0; Class Birch 0; Class Cat Dander 0; Class Cladosporium herbarum 0; Class Cockroach 0; Class Common Ragweed 0; Class Cottonwood 0; Class Derm. pterony 0; Class Dermatophagoides farinae 0; Class Dog Dander 0; Class Elm 0; Class Maple Box Elder 0; Class Mountain Cedar 0; Class Mouse Urine Protein 0; Class Oak 0; Class Penicillium crysogenum 0; Class Sycamore 0; Class Timothy Grass 0; Class Walnut Tree 0; Class White Ash 0; Class White Mulberry 0; D001 IgE D pteronyssinus <0.10 kU/L; D002 - IgE D farinae <0.10 kU/L; E001 - IgE Cat Dander <0.10 kU/L; E005 - IgE Dog Dander <0.10 kU/L; E072-IgE Mouse Urine <0.10 kU/L; G002 IgE Bermuda Grass <0.10 kU/L; G006 - IgE Timothy Grass <0.10 kU/L; I006-IgE Cockroach, German <0.10 kU/L; M001 IgE Penicillium chrysogen <0.10 kU/L; M002 - IgE Cladosporium herbar <0.10 kU/L; M003 - IgE Aspergillus fumigat <0.10 kU/L; M006 - IgE Alternaria alternat <0.10 kU/L; T001 IgE Maple/Box Elder <0.10 kU/L; T003 IgE Common Silver Birch <0.10 kU/L; T006 - IgE Cedar, Mountain <0.10 kU/L; T007 - IgE Oak, White <0.10 kU/L; T008 IgE Elm, American <0.10 kU/L; T010 - IgE Walnut <0.10 kU/L; T011 - IgE Maple Leaf Sycamore <0.10 kU/L; T014 - IgE Cottonwood <0.10 kU/L; T015 - IgE Ash, White <0.10 kU/L; T070 - IgE White Mulberry <0.10 kU/L; W001 - IgE Ragweed, Short <0.10 kU/L
== END 2023-10-28 08:02 | disposition home or self-care (01) ==
LOC: HO.LAB 08:01
PROVIDERS: PCP Internal Medicine; Visit Provider Nurse Practitioner Family
DX: R06.00 Dyspnea, unspecified (principal); Z91.09 Other allergy status, other than to drugs and biological substances
CPT/HCPCS: 36415; 82785; 85025; 86003

== ENCOUNTER 2023-10-28 08:36 | Outpatient (AMB) | payer MEDICARE, MEDICAID, SELFPAY ==
[2023-10-28 08:37] VITALS: BP 124/72; PULSE 73; O2SAT 99; BMI 37.3
--- NOTE | 2023-10-28 08:37 | A.OFFPC_ITS ---
Vital Signs 10/28/23 08:37 Height 5 ft Weight 191 lb BMI 37.3 BP 124/72 Blood Pressure Location Lt brachial Position Sitting Pulse 73 Pulse Source Pulse Oximeter Pulse Oximetry (%) 99 Oxygen Delivery Method Room Air Intake Visit Reasons: 3mth f/u Intake Note: Patient is here to follow up on 3 months Creative Services Manager Required: No Allergies Sulfa (Sulfonamide Antibiotics) Allergy (Unknown, Verified 10/28/23 09:14) Unknown aripiprazole [From ABILIFY] Adverse Reaction (Severe, Verified 10/28/23 09:14) hallucinations ketorolac [From Toradol] Adverse Reaction (Intermediate, Verified 10/28/23 09:14) shakes/tremors Medication List - Last Reconciled 10/28/23 by Tu Sheffield MD amitriptyline 100 mg PO BEDTIME amlodipine 10 mg PO DAILY aspirin 81 mg PO DAILY 90 days atenolol 50 mg PO DAILY baclofen 20 mg PO TID-QID PRN 90 days [Bladder Control Pads Extra Absorb (Incontinence pads) As directed TID-QID] blood pressure monitor As directed buspirone 5 mg PO BID 90 days cholecalciferol (vitamin D3) 50 mcg PO DAILY cyanocobalamin (vitamin B-12) ER 1,000 mcg PO DAILY famotidine 20 mg PO DAILY 90 days fenofibrate micronized 134 mg PO DAILY hospital bed As directed losartan 100 mg PO DAILY miscellaneous medical supply 1 ea miscellaneous DAILY miscellaneous medical supply 1 ea miscellaneous DAILY miscellaneous medical supply 2 ea miscellaneous .QIDHS miscellaneous medical supply 1 ea miscellaneous TID-QID morphine ER 60 mg PO Q12H 28 days afvughre-gddtiernzZy-uogglsnaX 3.5mg-400 unit- 5,000 unit/gram (Triple Antibiotic) 1 appl topical TID nitrofurantoin monohyd/m-cryst 100 mg 100 mg PO .QD 90 days [OXYGEN Use at 2 LPM per nasal cannula As directed] pantoprazole 40 mg PO DAILY 90 days Percocet 10-325 mg (oxycodone-acetaminophen) 1 tab PO Q6H PRN 28 days NS potassium chloride ER 10 mEq PO BID promethazine 25 mg PO TID PRN 30 days sertraline 200 mg (2 x 100 mg) PO DAILY 90 days simvastatin 5 mg PO BEDTIME 90 days spironolactone 25 mg PO DAILY 90 days [WIG As directed] Tobacco use date assessed: 10/28/23 Dental Screening Dental Screen Date: 10/28/23 Did you have a dental visit in the last 12 months?: No Did you have a dental problem in the last 6 months where you did not have access to dental care?: No Was dental information given to patient?: Patient has dentist HPI 3mth f/u HPI Details Patient comes in today for her follow up visit States that she is currently feeling better She has called up a coouple of times over the past few months (was last seen here in March 2023) for increased cough and congestion and coughing up colored phlegm lately She reports responding only partially to empiric Abx Tx called in for her but states that her symptoms never completely clear up She also started experiencing increasing MONTERO a few weeks ago and was eventually referred to pulmonary for further evaluation as we suspected that she may have some form of obstructive lung pathology, given her smoking history She was seen by pulmonary a few weeks ago and started empirically on 7 days of oral Doxycycline, which patient states that she just finished about a week ago (admitted to forgetting to take her Abx a couple of times ) - she reports experiencing significant improvement of her symptoms although she is still coughing every now and then She was also sent for echocardiogram, PFT and low dose CT lung screening - is scheduled for her echo tomorrow morning and for her lung CT and OFT next month (November 2023) Patient also had some labs done earlier today but these appear to be mostly the allergy testing that were ordered by pulmonary She denies any fever or sore throat Denies any chest pains; still (+) MONTERO but feels that this has improved slightly from previous No nausea/vomiting, no abdominal pain No change in bowel habits noted States that her chronic pains remain adequately controlled on her current Rx - she will be needing them refilled in a few days but states that the pharmacy will contact us when it is time for her refills [facility] Medical History Atrial septal aneurysm Palpitations Obesity (BMI 30-39.9) Depression Anxiety Posttraumatic stress disorder Insomnia Urinary incontinence Memory impairment Vitamin D deficiency Osteoarthritis Allergic rhinitis GERD without esophagitis Bulging of cervical intervertebral disc Vitamin B12 deficiency Migraine Coronary atherosclerosis Impaired fasting glucose Mixed hyperlipidemia Benign essential hypertension Degeneration of lumbar or lumbosacral intervertebral disc Surgical History History of lumbar surgery History of laparoscopic cholecystectomy History of total abdominal hysterectomy and bilateral salpingo-oophorectomy (~1997) History of appendectomy Family History Father Stroke Cancer CVD (cardiovascular disease) Mother CVD (cardiovascular disease) Stroke Sister Non-small cell lung cancer Brother Glioma of brain Other Mental health problem Social History Housing: Apartment Alcohol intake: never Patient Tobacco Use Status: Former Tobacco user Tobacco use type: Cigarette e-Cigarette/Vaping Use: Never Used Second Hand Smoke Exposure: Yes service: No Current occupational status: disabled Cognitive needs: Yes Hearing needs: No Vision needs: Yes Questionnaire PHQ-9 Over the last 2 weeks, how often have you been bothered by any of the following problems? 1. Little interest or pleasure in doing things: not at all 2. Feeling down, depressed, or hopeless: not at all 3. Trouble falling or staying asleep, or sleeping too much: not at all 4. Feeling tired or having little energy: not at all 5. Poor appetite or overeating: not at all 6. Feeling bad about yourself - or that you are a failure or have let yourself or your family down: not at all 7. Trouble concentrating on things, such as reading the newspaper or watching television: not at all 8. Moving or speaking so slowly that other people could have noticed. Or the opposite - being so fidgety or restless that you have been moving around a lot more than usual: not at all 9. Thoughts that you would be better off or of hurting yourself in some way: not at all Total score: 0 Depression Screening Interpretation: Negative (is on Rx) Depression Screening Done: Yes 02419 - PHQ-9 Billing: Yes Source: Developed by Drs. Babatunde Wagner, Deana Hart, Vernon Medina and colleagues, with an educational janet from [employer]. Thrive Questionnaire Date Thrive assessed: 10/28/23 I am a: Patient What is your living situation today?: I have a steady place to live Within the past 12 months, did the food you bought not last and you didn't have the money to get more?: Never true Within the past 12 months, did you worry whether your food would run out before you got money to buy more?: Never true Do you have trouble paying for medicines?: No Do you have trouble getting transportation to medical appointments?: No Do you have trouble paying your heating and electricity bill?: No Do you have trouble taking care of your child, family member or friend?: No Do you have trouble with day-to-day activities such as bathing, preparing meals, shopping, managing finances, etc.?: No Are you currently unemployed and looking for a job?: No Are you interested in more education?: No Please select the resources that you would like help with: None Currently or been in a relationship where the following occur: no concerns reported THRIVE Score: 0 AUDIT C Alcohol Use Questionnaire (AUDIT-C) 1. How often do you have a drink containing alcohol?: Never 3. How often do you have six or more drinks on one occasion?: Never Total Score: 0 Score Reviewed/Action Taken: Yes KANDI-7 AMB Questionnaire KANDI-7 Date KANDI - 7 assessed: 10/28/23 Feeling nervous, anxious, or on edge: 0 = Not at all Not being able to stop or control worryin = Not at all Worrying too much about different things: 0 = Not at all Trouble relaxin = Not at all Being so restless that it is hard to sit still: 0 = Not at all Becoming easily annoyed or irritable: 0 = Not at all Feeling afraid as if something awful might happen: 0 = Not at all Total KANDI-7 score (0-4 normal; 5-9 mild; 10-14 moderate; 15-21 severe): 0 Source: Developed by Drs. Babatunde Wagner, Deana Hart, Vernon Medina and colleagues, with an educational janet from [employer]. KANDI-7 Assessment Billing KANDI-7 Assessment Tool: KANDI-7 Assessment 51963 Review of Systems Const Reports fatigue, Denies fever(s), Denies headache(s), Denies night sweats and Denies weight loss ENT Denies dysphagia, Denies dizziness, Denies otalgia, Denies headache(s), Denies hoarseness, Reports neck pain (chronic), Denies odynophagia and Denies sore throat Card Denies chest pain, Denies irregular heart rhythm, Denies palpitations and Reports dyspnea on exertion (mild) Resp Reports chest congestion (mild - much improved from a couple of months ago), Reports cough (recurrent, coughs up minimal whitish to slightly yellowish phlegm), Reports dyspnea on exertion (mild) and Denies wheezing GI Denies abdominal pain, Denies constipation, Denies dysphagia, Denies diarrhea, Denies nausea, Denies odynophagia and Denies vomiting Denies difficulty voiding, Denies nocturia, Denies dysuria, Reports urinary incontinence and Reports urinary urgency Musc Reports back pain (increased) and Reports neck pain (chronic) Skin/Breast Denies rash Neuro Denies dizziness, Denies headache(s), Reports radicular pain (in the left lower extremity) and Reports paresthesias (over the right side of her face and head for the past week) Endo Reports fatigue and Denies palpitations Aller/Immun Denies wheezing Physical exam (Primary Care) Vital Signs: Last Vital Signs Pulse 73 10/28/23 08:37 BP 124/72 10/28/23 08:37 Pulse Ox 99 10/28/23 08:37 Oxygen Delivery Method Room Air 10/28/23 08:37 BMI result Body Mass Index 37.3 Tobacco/Smoking Status: Tobacco use Status Tobacco use date assessed 10/28/23 10/28/23 08:39 Patient Tobacco Use Status Former Tobacco user 10/28/23 08:39 Tobacco use type Cigarette 10/28/23 08:39 e-Cigarette/Vaping Use Never Used 10/28/23 08:39 PHQ-9: PHQ-9 Score PHQ-9: Total score 0 10/28/23 08:56 Depression Screening Interpretation: Negative (is on Rx) Thrive Assessment: Date of Thrive Assessment Date Thrive assessed 10/28/23 10/28/23 08:39 Currently or been in a relationship where the following occur: no concerns reported Const General: no acute distress and alert HENMT Ears: TM's normal bilaterally and EAC's normal General nose exam: No nasal discharge present Face and sinus: No sinus tenderness Throat: Yes posterior oropharynx normal and Yes tonsils normal (no TP congestion) Neck Neck: Yes no lymphadenopathy and Yes supple Thyroid: Thyroid normal Resp Auscultation: no rales, rhonchi (scattered rhonchi bilaterally noted only on coughing / forced expiration), no wheezes and diminished lung sounds (slightly) bilateral Cardio Rate: regular rate Rhythm: regular rhythm Heart sounds: no murmurs GI Palpation (GI): Soft to palpation and nontender Auscultation: normal bowel sounds General: Yes no CVA tenderness Back/Spine/Pelvis Back: no CVA tenderness Cervical Spine: Cervical spine tenderness Thoracic/Lumbar Spine: lumbar spinal tenderness (chronic) Skin Rashes: no rashes Extrem General: Yes no clubbing, cyanosis or edema Results Reviewed Results Reviewed: Laboratory Tests 10/28/23 08:16 WBC 8.3 Hgb 12.0 Hct 37.8 Plt Count 191 Assessment and Plan Assessment & Plan (1) Coronary atherosclerosis: Code(s): I25.10 - Atherosclerotic heart disease of [place] coronary artery without angina pectoris Qualifiers: Coronary Disease-Associated Artery/Lesion type: [place] artery [place] vs. transplanted heart: [place] heart Associated angina: without angina Qualified Code(s): I25.10 - Atherosclerotic heart disease of [place] coronary artery without angina pectoris Plan: Coronary CTA done at [facility] a couple of years ago?reportedly came out normal Patient also has had numerous cardiac workups done over the past couple of years, including stress testing - all of her tests have come back normal so far Continue Aspirin 81 mg QD Follow-up with cardiology as scheduled (2) Benign essential hypertension: Code(s): I10 - Essential (primary) hypertension Plan: Reinforced low-sodium diet -? goal is systolic BP of at least 120 to 130 mm or less Continue Amlodipine 10 mg QD, Losartan 100 mg QD, Atenolol 50 mg QD and Spironolactone 25 mg QD (3) Mixed hyperlipidemia: Code(s): E78.2 - Mixed hyperlipidemia Plan: Her labs done earlier today were non-fasting and did not include a fasting lipid profile Reinforced low cholesterol diet Continue Simvastatin 5 mg QD and Fenofibrate 134 mg QD Will recheck her labs and fasting lipids in 3 months for follow up (4) Dyspnea: Code(s): R06.00 - Dyspnea, unspecified Qualifiers: Dyspnea type: dyspnea on exertion Qualified Code(s): R06.09 - Other forms of dyspnea Plan: Suspect that she has COPD due to her smoking history and that her recent/recurrent productive cough / congestion and respiratory symptoms are likely due to COPD exacerbation She has been referred to pulmonary and is currently undergoing pulmonary evaluation; is scheduled for echocardiogram, PFT and low dose CT lung screening over the next couple of months She also had some labs and allergy testing done earlier this morning to check for potential mold exposure, per patient's claims - results are still pending at this time Follow up with pulmonary as scheduled (5) Degeneration of lumbar or lumbosacral intervertebral disc: Code(s): M51.37 - Other intervertebral disc degeneration, lumbosacral region Plan: Reinforced activity and weight lifting restrictions to avoid aggravating her back pain Continue Morphine ER 60 mg every 12 hours and? Percocet 10-325 mg 1 tablet 3 times a day as needed for breakthrough pain (6) Migraine: Code(s): G43.909 - Migraine, unspecified, not intractable, without status migrainosus Qualifiers: Migraine type: unspecified Status migrainosus presence: without status migrainosus Intractability: not intractable Qualified Code(s): G43.909 - Luis shukri, unspecified, not intractable, without status migrainosus Plan: Continue Fioricet 1 tablet 2 to 3 times a day as needed Patient is also on Amitriptyline 100 mg daily at bedtime for headache prophylaxis Follow-up with Neurology as scheduled (7) Vitamin B12 deficiency: Code(s): E53.8 - Deficiency of other specified B group vitamins Plan: Continue Vitamin B12 tablets 1000 mg QD (8) Allergic rhinitis: Code(s): J30.9 - Allergic rhinitis, unspecified Qualifiers: Allergic rhinitis trigger: pollen Allergic rhinitis seasonality: unspecified Qualified Code(s): J30.1 - Allergic rhinitis due to pollen Plan: Continue Loratadine 10 mg QD PRN and Fluticasone nasal spray QD PRN (9) Insomnia: Code(s): G47.00 - Insomnia, unspecified Qualifiers: Insomnia type: unspecified Qualified Code(s): G47.00 - Insomnia, unspecified Plan: Sleep hygiene reinforced Continue Amitriptyline 100 mg daily at bedtime (10) Posttraumatic stress disorder: Code(s): F43.10 - Post-traumatic stress disorder, unspecified Plan: Continue Sertraline 100 mg 2 tablets daily (11) Anxiety: Code(s): F41.9 - Anxiety disorder, unspecified Plan: Continue Lorazepam 2 mg once a day in AM as needed Sertraline also helps with her anxiety (12) Depression: Code(s): F32.9 - Major depressive disorder, single episode, unspecified Qualifiers: Depression Type: major depressive disorder Major depression recurrence: recurrent Active/Remission status: currently active Major depression episode severity: unspecified Qualified Code(s): F33.9 - Major depressive disorder, recurrent, unspecified Plan: Continue Sertraline 200 mg QD Follow-up with Psychiatry as scheduled (13) Obesity (BMI 30-39.9): Code(s): E66.9 - Obesity, unspecified Plan: Reinforced diet/exercise as tolerated/lose weight although her activity and exercise tolerance is mostly low/poor Plan Follow up in 3 months Orders: Orders Lipid Panel 3 Months E78.00 - Pure hypercholesterolemia, unspecified Vitamin D 25-OH Total 3 Months E55.9 - Vitamin D deficiency, unspecified Complete Blood Count Auto Diff 3 Months D64.9 - Anemia, unspecified Comprehensive [place]. Panel Fast 3 Months E78.00 - Pure hypercholesterolemia, unspecified UA CC w/rflx Micro + Cult 3 Months R30.0 - Dysuria TSH reflex Free T4 3 Months E78.00 - Pure hypercholesterolemia, unspecified Coding Level of Care Code Est Pt Level 4 (30679) Diagnoses Atherosclerosis of [place] coronary artery of [place] heart without angina pectoris I25.10 Coronary Disease-Associated Artery/Lesion type: [place] artery [place] vs. transplanted heart: [place] heart Associated angina: without angina Benign essential hypertension I10 Mixed hyperlipidemia E78.2 Dyspnea on exertion R06.09 Dyspnea type: dyspnea on exertion Degeneration of lumbar or lumbosacral intervertebral disc M51.37 Migraine without status migrainosus, not intractable, unspecified migraine type G43.909 Migraine type: unspecified Status migrainosus presence: without status migrainosus Intractability: not intractable Vitamin B12 deficiency E53.8 Allergic rhinitis due to pollen, unspecified seasonality J30.1 Allergic rhinitis trigger: pollen Allergic rhinitis seasonality: unspecified Insomnia, unspecified type G47.00 Insomnia type: unspecified Posttraumatic stress disorder F43.10 Anxiety F41.9 Episode of recurrent major depressive disorder, unspecified depression episode severity F33.9 Depression Type: major depressive disorder Major depression recurrence: recurrent Active/Remission status: currently active Major depression episode severity: unspecified Obesity (BMI 30-39.9) E66.9 Additional Codes KANDI-7 Assessment Billing - KANDI-7 Assessment Tool: KANDI-7 Assessment 94420 ([id number])
== END 2023-10-28 09:32 | disposition home or self-care (01) ==
PROVIDERS: PCP Internal Medicine; Visit Provider Internal Medicine
DX: I25.10 Atherosclerotic heart disease of native coronary artery without angina pectoris (principal); F33.9 Major depressive disorder, recurrent, unspecified; I10 Essential (primary) hypertension; E78.2 Mixed hyperlipidemia; R06.09 Other forms of dyspnea; M51.37 Other intervertebral disc degeneration, lumbosacral region; G43.909 Migraine, unspecified, not intractable, without status migrainosus; E53.8 Deficiency of other specified B group vitamins; J30.1 Allergic rhinitis due to pollen; G47.00 Insomnia, unspecified; F43.10 Post-traumatic stress disorder, unspecified
CPT/HCPCS: 99214

== ENCOUNTER → 2023-11-13 14:41 | Outpatient (REF) | payer MEDICARE, MEDICAID, SELFPAY ==
--- NOTE | 2023-11-13 14:44 | CA_ITS ---
Transthoracic Echocardiogram Patient (Last, First, Middle): Brandee Jain A Gender: Female Date of : 1965 Age: 58 Procedure Date: 11/13/2023 Procedure Type: Transthoracic Echocardiogram Location: OP Height: 152.4 cm Weight: 86.64 kg BSA: 1.83 m2 Heart Rate: 61 bpm BP: 126 / 74 mmHg Sample Maker: SB Referring MD: Mary Corea NP Symptoms: R06.00 - Dyspnea, unspecified Study Quality: Adequate ECG Rhythm: Sinus Conclusions: - The left ventricular systolic function is normal. The visually estimated ejection fraction is between 55-60%. - There is moderate septal asymmetric hypertrophy. - Evidence suggests grade II (moderate) diastolic dysfunction. - There is an interatrial septal aneurysm seen bowing to the right. There is no evidence of interatrial shunt by color Doppler. - No obvious valvular pathology seen on this study. Findings Left Ventricle Normal left ventricular cavity size. The left ventricular systolic function is normal. The visually estimated ejection fraction is between 55-60%. There is no evidence of regional wall motion abnormalities. Evidence suggests grade II (moderate) diastolic dysfunction. There is moderate septal asymmetric hypertrophy. Right Ventricle Normal right ventricular cavity size and systolic function. Atria The left atrium is mildly dilated. There is an interatrial septal aneurysm seen bowing to the right. There is no evidence of interatrial shunt by color Doppler. The right atrium is normal in size. Aortic Valve There is a normal trileaflet aortic valve. There is no aortic valve stenosis. There is no aortic valve regurgitation. Mitral Valve There is mild mitral annular calcification. There is no mitral valve regurgitation. There is no mitral valve stenosis. Pulmonic Valve The pulmonic valve is likely normal. Tricuspid Valve Normal tricuspid valve structure. There is trace tricuspid valve regurgitation. There is no evidence of pulmonary hypertension. Great Vessels The asc aorta and aortic arch are normal in size. Venous The inferior vena cava is normal in size and collapses greater than 50% with inspiration. Pericardium/Pleural There is no evidence of pericardial effusion. Prior Study Comparison Changes noted compared to prior study dated: 02/22/2018. Diastolic dysfunction noted. Recommendations, Care & Conclusions No obvious valvular pathology seen on this study. Measurements 2D Linear Measurements IVSd: 1.62 0.6-0.9/0.6-1.0 cm LVIDd: 4.62 3.9-5.3/4.2-5.9 cm LVIDd Index: 2.52 2.4-3.2/2.2-3.1 cm/m2 LVIDs: 2.79 2.0-3.6 cm LA Diam: 4.10 2.7-3.8/3.0-4.0 cm LAIDs Index: 2.24 1.5-2.3 cm/m2 LVOT Diam: 2.00 3.0+(-)1.3 cm 2D Systolic Function EF 4C: 53.50 >55% EF 2C: 57.70 >55% EF BiP: 52.90 >55% Mitral Valve MV Pk E: 0.88 MV PK A: 0.67 MV Decel Time: 194.00 E/A: 1.30 E'Lateral: 5.87 E'Medial: 5.33 E/E' Med: 16.60 E/E' Lat: 15.00 PHT: 57.00 MVA PHT: 3.86 Decel [place]: 4.55 Aortic Valve AoV Pk Garry: 1.07 AoV Pk Grad: 5.00 CORNELIO: 2.76 LVOT LVOT Pk Garry: 0.95 LVOT Mn Garry: 0.70 LVOT VTI: 0.23 LVOT Pk Grad: 4.00 LVOT Mn Grad: 2.00 LVOT Diam: 2.00 LVOT Area: 3.14 Diastolic Function MV Pk E: 0.88 MV Pk A: 0.67 E/A: 1.30 E'Medial: 5.33 E/E' Med: 16.60 E' Laterial: 5.87 E/E' Lat: 15.00 Right Ventricle TAPSE (mm): 22.30 TVS' Garry: 10.70 Tricuspid Valve TR Pk Garry: 1.96 TR Pk Grad: 15.00 RA Press: 3.00 RVSP: 18.00 Great Vessels Aorta Sinus of Valsalva: 3.30 2.0-3.5 cm Ao Asc: 3.30 2.1-3.4 cm Ao Arch: 3.00 Pulmonary Veins Pulm Vein S/D 1.50 Pulmonary Valve PV Pk Garry: 0.80 Peak PV Grad: 3.00 Updated in Other Vendor System with Status of Final Diogo Lopez MD electronically signed on 11/14/2023 12:05:57 PM with status of Final
== END ==
LOC: HO.CARD 14:41
PROVIDERS: PCP Internal Medicine; Visit Provider Nurse Practitioner Family
DX: R06.00 Dyspnea, unspecified (principal)
CPT/HCPCS: 93306

== ENCOUNTER → 2023-11-13 14:44 | Outpatient (BNV) | payer MEDICARE, MEDICAID, SELFPAY | PROVIDERS: PCP Internal Medicine; Visit Provider Internal Medicine | DX: I34.81 Nonrheumatic mitral (valve) annulus calcification (principal); I25.3 Aneurysm of heart; I51.89 Other ill-defined heart diseases | CPT/HCPCS: 93306 ==

== ENCOUNTER 2023-11-25 08:57 | Outpatient (REF) | payer MEDICARE, MEDICAID, SELFPAY ==
--- NOTE | ~2023-11-25 | CT_ITS ---
EXAMINATION: CT CHEST WITHOUT CONTRAST CLINICAL INFORMATION: Personal history of nicotine dependence. COMPARISON: None. TECHNIQUE: Multidetector volumetric CT imaging of the chest was done. Axial MIP volume rendering provided. Sagittal and coronal reformatted images were obtained. This CT examination was performed using dose optimization techniques as appropriate, variously including the following: *Automated exposure control *Adjustment of mA and/or kV according to patient size (this includes techniques or standardized protocols for targeted exams where dose is matched to indication/reason for exam; i.e. extremities or head) *Use of iterative reconstruction technique DLP: 175 mGy-cm FINDINGS: STITCH CLEANER: The lungs are symmetrically well-expanded and grossly clear. LUNGS: There are a few bilateral benign, calcified granulomas. No noncalcified nodule, mass or infiltrate is seen. Within the right upper lobe (5:120 and 207), there are 1.2 cm and 1.4 cm groundglass opacities. Within the left upper lobe (5:164), an ill-defined 1.1 cm groundglass opacity is seen. No generalized increase is seen in peripheral interlobular septal markings. There are a few bilateral scattered foci of minor scar/subsegmental atelectasis, without associated focal airway obstruction. There is no generalized small airway thickening. The central airways appear patent. MEDIASTINUM: The thyroid is unremarkable. There is no thoracic aortic aneurysm. There are atherosclerotic calcifications of the great vessel origins and thoracic aorta. No mediastinal or hilar lymphadenopathy is seen. CORONARY ARTERY CALCIFICATION: Very mild. PLEURA: There is no pleural effusion. No pleural mass or thickening. AXILLA: No lymphadenopathy. UPPER ABDOMEN: Unremarkable. OSSEOUS STRUCTURES: There is multi-level thoracic spondylosis. No acute or aggressive osseous finding is noted. CT/CT chest wo IV con IMPRESSION: There are bilateral upper lobe groundglass opacities, as detailed. These are nonspecific and could be secondary to infection, chronic interstitial disease, acute alveolar disease and, less likely, a neoplastic process. Recommend clinical correlation and management, with short term follow-up CT imaging in 1-3 months to ensure stability/clearance. Should the findings persist/increase, PET/CT and/or biopsy may be considered Fleischner guidelines were followed.
== END 2023-11-25 08:58 | disposition home or self-care (01) ==
LOC: HO.CT 08:57
PROVIDERS: PCP Internal Medicine; Visit Provider Nurse Practitioner Family
DX: Z12.2 Encounter for screening for malignant neoplasm of respiratory organs (principal); Z87.891 Personal history of nicotine dependence
CPT/HCPCS: 71250

== ENCOUNTER 2024-09-27 16:12 | Outpatient (AMB) | payer MEDICARE, MEDICAID, SELFPAY ==
[2024-09-27 16:19] VITALS: BP 110/78; PULSE 68; O2SAT 93; BMI 37.9
--- NOTE | 2024-09-27 16:19 | MHC.PC.OV ---
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: No Accompanied by: Self / Same As Patient Allergies Sulfa (Sulfonamide Antibiotics) Allergy (Unknown, Verified 10/02/24 23:28) Unknown aripiprazole [From ABILIFY] Adverse Reaction (Severe, Verified 10/02/24 23:28) hallucinations ketorolac [From Toradol] Adverse Reaction (Intermediate, Verified 10/02/24 23:28) shakes/tremors Medication List - Last Reconciled 10/02/24 by Tu Sheffield MD amitriptyline 100 mg PO BEDTIME amlodipine 10 mg PO DAILY aspirin 81 mg PO DAILY 90 days atenolol 50 mg PO DAILY baclofen 20 mg PO TID-QID PRN 90 days [Bladder Control Pads Extra Absorb (Incontinence pads) As directed TID-QID] blood pressure monitor As directed buspirone 5 mg PO BID 90 days cholecalciferol (vitamin D3) 50 mcg PO DAILY cyanocobalamin (vitamin B-12) ER 1,000 mcg PO DAILY famotidine 20 mg PO DAILY 90 days fenofibrate micronized 134 mg PO DAILY fluconazole 150 mg PO Q3D 2 doses hospital bed As directed losartan 100 mg PO DAILY miscellaneous medical supply 1 ea miscellaneous DAILY miscellaneous medical supply 1 ea miscellaneous DAILY miscellaneous medical supply 2 ea miscellaneous .QIDHS miscellaneous medical supply 1 ea miscellaneous TID-QID morphine ER 60 mg PO Q12H 28 days ebzlljqp-[id number]-lvbckgtdI 3.5mg-400 unit- 5,000 unit/gram (Triple Antibiotic) 1 appl topical TID nitrofurantoin monohyd/m-cryst 100 mg 100 mg PO .QD 90 days [OXYGEN Use at 2 LPM per nasal cannula As directed] pantoprazole 40 mg PO DAILY 90 days Percocet 10-325 mg (oxycodone-acetaminophen) 1 tab PO Q6H PRN 28 days NS potassium chloride ER 10 mEq PO BID promethazine 25 mg PO TID PRN 30 days sertraline 200 mg (2 x 100 mg) PO DAILY 90 days simvastatin 5 mg PO BEDTIME 90 days spironolactone 25 mg PO DAILY 90 days [WIG As directed] Tobacco use date assessed: 09/27/24 Dental Screening Dental Screen Date: 09/27/24 Did you have a dental visit in the last 12 months?: No Did you have a dental problem in the last 6 months where you did not have access to dental care?: No Was dental information given to patient?: No HPI annual exam HPI Details Patient comes in today for her annual physical examination - she has not been back since 10/28/2023 States that she has been experiencing increasing anxiety and paranoia for the past year, especially when she tries to get out of her house, and this is the main reason why she has not been back for so long States that even coming out today to get here took a lot out of her States that she has been experiencing increasing pain over her lower back lately and that her current medications sometimes are barely helping She does not recall any recent injury or trauma to her lower back She denies any headaches or dizziness Denies any chest pains, no increased shortness of breath No nausea/vomiting, no abdominal pain No change in bowel habits noted She denies any acute urinary symptoms States that she had a complete hysterectomy over 20 years ago and she is not needed to keep up with her yearly gynecology exam and Pap smear but she is due for all of her other cancer screenings, including annual mammogram, screening colonoscopy and bone density [facility] Medical History Atrial septal aneurysm Palpitations Obesity (BMI 30-39.9) Depression Anxiety Posttraumatic stress disorder Insomnia Urinary incontinence Memory impairment Vitamin D deficiency Osteoarthritis Allergic rhinitis GERD without esophagitis Bulging of cervical intervertebral disc Vitamin B12 deficiency Migraine Coronary atherosclerosis Impaired fasting glucose Mixed hyperlipidemia Benign essential hypertension Degeneration of lumbar or lumbosacral intervertebral disc Surgical History History of lumbar surgery History of laparoscopic cholecystectomy History of total abdominal hysterectomy and bilateral salpingo-oophorectomy (~1997) History of appendectomy Family History Father CVD (cardiovascular disease) Cancer Heart attack Mother CVD (cardiovascular disease) Sister Glioma of brain Brother No problems noted. Sister Non-small cell lung cancer Other Mental health problem Social History Housing: Apartment Alcohol intake: never Patient Tobacco Use Status: Former Tobacco user Tobacco use type: Cigarette e-Cigarette/Vaping Use: Never Used Second Hand Smoke Exposure: Yes service: No Current occupational status: disabled Cognitive needs: Yes Hearing needs: No Vision needs: Yes Questionnaire PHQ-9 Over the last 2 weeks, how often have you been bothered by any of the following problems? 1. Little interest or pleasure in doing things: not at all 2. Feeling down, depressed, or hopeless: not at all 3. Trouble falling or staying asleep, or sleeping too much: not at all 4. Feeling tired or having little energy: not at all 5. Poor appetite or overeating: not at all 6. Feeling bad about yourself - or that you are a failure or have let yourself or your family down: not at all 7. Trouble concentrating on things, such as reading the newspaper or watching television: not at all 8. Moving or speaking so slowly that other people could have noticed. Or the opposite - being so fidgety or restless that you have been moving around a lot more than usual: not at all 9. Thoughts that you would be better off or of hurting yourself in some way: not at all Total score: 0 Depression Screening Interpretation: Negative (is on Rx) Depression Screening Done: Yes 34683 - PHQ-9 Billing: Yes Source: Developed by Drs. Babatunde Wagner, Deana Hart, Vernon Medina and colleagues, with an educational janet from [employer]. Thrive Questionnaire Date Thrive assessed: 09/27/24 I am a: Patient What is your living situation today?: I have a steady place to live Within the past 12 months, did the food you bought not last and you didn't have the money to get more?: Never true Within the past 12 months, did you worry whether your food would run out before you got money to buy more?: Never true Do you have trouble paying for medicines?: No Do you have trouble getting transportation to medical appointments?: No Do you have trouble paying your heating and electricity bill?: No Do you have trouble taking care of your child, family member or friend?: No Do you have trouble with day-to-day activities such as bathing, preparing meals, shopping, managing finances, etc.?: No Are you currently unemployed and looking for a job?: No Are you interested in more education?: No Please select the resources that you would like help with: None Currently or been in a relationship where the following occur: No concerns reported THRIVE Score: 0 AUDIT C Alcohol Use Questionnaire (AUDIT-C) 1. How often do you have a drink containing alcohol?: Never 3. How often do you have six or more drinks on one occasion?: Never Total Score: 0 Score Reviewed/Action Taken: Yes KANDI-7 AMB Questionnaire KANDI-7 Date KANDI - 7 assessed: 09/27/24 Feeling nervous, anxious, or on edge: 0 = Not at all Not being able to stop or control worryin = Not at all Worrying too much about different things: 0 = Not at all Trouble relaxin = Not at all Being so restless that it is hard to sit still: 0 = Not at all Becoming easily annoyed or irritable: 0 = Not at all Feeling afraid as if something awful might happen: 0 = Not at all Total KANDI-7 score (0-4 normal; 5-9 mild; 10-14 moderate; 15-21 severe): 0 Source: Developed by Drs. Babatunde Wagner, Deana Hart, Vernon Medina and colleagues, with an educational janet from [employer]. KANDI-7 Assessment Billing KANDI-7 Assessment Tool: KANDI-7 Assessment 38637 Review of Systems Const Denies chills, Reports fatigue, Denies fever(s), Denies headache(s) and Denies malaise Eyes Denies blurry vision, Denies change in vision, Denies irritation and Denies itchy eyes ENT Denies dysphagia, Denies dizziness, Denies otalgia, Denies headache(s), Denies nasal congestion, Reports neck pain (chronic), Denies odynophagia, Denies sinus pain and Denies sore throat Card Denies chest pain, Denies rapid heart rate, Denies irregular heart rhythm, Denies palpitations and Reports dyspnea on exertion (mild) Resp Denies chest congestion, Denies cough, Reports dyspnea on exertion (mild) and Denies wheezing GI Denies abdominal pain, Denies bloating, Denies constipation, Denies dysphagia, Denies heartburn, Denies diarrhea, Denies nausea, Denies odynophagia and Denies vomiting Denies hematuria, Denies urinary frequency, Denies dysuria, Denies urinary incontinence and Denies urinary urgency Musc Reports back pain (over the lower back - chronic), Denies arthralgias, Denies joint swelling, Denies muscle weakness and Reports neck pain (chronic) Skin/Breast Denies breast pain, Denies breast mass, Denies change in pigmentation, Denies lesions, Denies rash and Denies unusual bruising Neuro Denies dizziness, Denies headache(s) and Denies paresthesias Psych Reports anxiety (increasing), Denies depression and Reports paranoia Endo Reports fatigue and Denies palpitations [place]/Lymph Denies easy bruising Aller/Immun Denies itchy eyes and Denies wheezing Physical exam (Primary Care) Vital Signs: Last Vital Signs Pulse 68 09/27/24 16:19 BP 110/78 09/27/24 16:19 Pulse Ox 93 09/27/24 16:19 Oxygen Delivery Method Room Air 09/27/24 16:19 BMI result Body Mass Index 37.9 Tobacco/Smoking Status: Tobacco use Status Tobacco use date assessed 09/27/24 09/27/24 16:21 Patient Tobacco Use Status Former Tobacco user 09/27/24 16:21 Tobacco use type Cigarette 09/27/24 16:21 e-Cigarette/Vaping Use Never Used 09/27/24 16:21 PHQ-9: PHQ-9 Score PHQ-9: Total score 0 09/27/24 17:03 Depression Screening Interpretation: Negative (is on Rx) Thrive Assessment: Date of Thrive Assessment Date Thrive assessed 09/27/24 09/27/24 16:21 Currently or been in a relationship where the following occur: No concerns reported Const General: no acute distress, alert and awake Orientation/consciousness: patient oriented x3 HENMT Head: Yes normocephalic and Yes atraumatic Ears: external ears normal, TM's normal bilaterally and EAC's normal General nose exam: No nasal discharge present Face and sinus: Yes normal facial exam and Yes sinuses nontender Teeth and gingiva: dentition normal Throat: Yes posterior oropharynx normal and Yes tonsils normal (no TP congestion) Eyes Eyelids: Yes eyelids normal Conjunctivae: conjunctivae normal Pupils: Equal, round and reactive pupils present EOM: EOMs intact bilaterally Neck Neck: No lymphadenopathy and Yes tender Thyroid: Thyroid normal Resp Auscultation: clear to auscultation bilaterally, no rales and no wheezes Cardio Rate: regular rate Rhythm: regular rhythm Heart sounds: no murmurs GI Palpation (GI): Soft to palpation, nontender and No hepatosplenomegaly present Auscultation: normal bowel sounds General: Yes no CVA tenderness Back/Spine/Pelvis Back: no CVA tenderness Cervical Spine: Cervical spine tenderness Thoracic/Lumbar Spine: lumbar spinal tenderness Skin Lesions: no lesions Rashes: no rashes Neuro General: patient oriented x3, moves all extremities, no focal motor deficits and CN's II-XI intact bilaterally Cranial nerves: Yes Equal, round and reactive pupils present Cognition (Neuro): normal cognition Gait exam (Neuro): Normal gait present Extrem General: Yes no clubbing, cyanosis or edema Coding Level of Care Code Est Pt Prev Care 40-64y(93630) Diagnoses Annual physical exam Z00.00 Atherosclerosis of [place] coronary artery of [place] heart without angina pectoris I25.10 Coronary Disease-Associated Artery/Lesion type: [place] artery [place] vs. transplanted heart: [place] heart Associated angina: without angina Mixed hyperlipidemia E78.2 Benign essential hypertension I10 Dyspnea on exertion R06.09 Dyspnea type: dyspnea on exertion Degeneration of intervertebral disc of lumbosacral region with discogenic back pain M51.370 Disc-related pain type: discogenic back pain only Migraine without status migrainosus, not intractable, unspecified migraine type G43.909 Migraine type: unspecified Status migrainosus presence: without status migrainosus Intractability: not intractable Bulging of cervical intervertebral disc M50.20 Impaired fasting glucose R73.01 Vitamin B12 deficiency E53.8 Allergic rhinitis due to pollen, unspecified seasonality J30.1 Allergic rhinitis trigger: pollen Allergic rhinitis seasonality: unspecified Vitamin D deficiency E55.9 Insomnia, unspecified type G47.00 Insomnia type: unspecified Posttraumatic stress disorder F43.10 Anxiety F41.9 Episode of recurrent major depressive disorder, unspecified depression episode severity F33.9 Depression Type: major depressive disorder Major depression recurrence: recurrent Active/Remission status: currently active Major depression episode severity: unspecified Obesity (BMI 30-39.9) E66.9 Colon cancer screening Z12.11 Breast cancer screening by mammogram Z12.31 Osteoporosis screening Z13.820 Additional Codes KANDI-7 Assessment Billing - KANDI-7 Assessment Tool: KANDI-7 Assessment 05951 ([id number]) PHQ-9 - 62660 - PHQ-9 Billing: Yes ([id number]) Assessment & Plan Assessment & Plan (1) Annual physical exam: Code(s): Z00.00 - Encounter for general adult medical examination without abnormal findings Category: Medical Plan: Have advised patient that I will order labs today for her to get updated and to complete her annual physical but due to her issues with transportation, she can get them done when she comes back here to [facility] for her yearly mammogram She is also due for her screening colonoscopy and bone density and will be referred for these accordingly (2) Coronary atherosclerosis: Code(s): I25.10 - Atherosclerotic heart disease of [place] coronary artery without angina pectoris Category: Medical Qualifiers: Coronary Disease-Associated Artery/Lesion type: [place] artery [place] vs. transplanted heart: [place] heart Associated angina: without angina Qualified Code(s): I25.10 - Atherosclerotic heart disease of [place] coronary artery without angina pectoris Plan: Coronary CTA done at [facility] about 3f years ago?reportedly came out normal Patient also has had numerous cardiac workups done over the past couple of years, including stress testing - all of her tests have come back normal so far Continue Aspirin 81 mg QD Follow-up with cardiology as scheduled (3) Mixed hyperlipidemia: Code(s): E78.2 - Mixed hyperlipidemia Category: Medical Plan: Patient has not had any follow up labs done in a while Reinforced low cholesterol diet Continue Simvastatin 5 mg QD and Fenofibrate 134 mg QD Will recheck her labs and fasting lipids in 2 to 3 months for follow up (4) Benign essential hypertension: Code(s): I10 - Essential (primary) hypertension Category: Medical Plan: Reinforced low-sodium diet -? goal is systolic BP of at least 120 to 130 mm or less Continue Amlodipine 10 mg QD, Losartan 100 mg QD, Atenolol 50 mg QD and Spironolactone 25 mg QD (5) Dyspnea: Code(s): R06.00 - Dyspnea, unspecified Category: Medical Qualifiers: Dyspnea type: dyspnea on exertion Qualified Code(s): R06.09 - Other forms of dyspnea Plan: Patient was suspected to have COPD due to her smoking history, as well as due to her recurrent productive cough / congestion and respiratory symptoms She has been referred to pulmonary and was recommended to undergo further evaluation with PFTs and lung screening but she does not appear to have had these done as she has not been able to get back here to [facility] in almost a year due to her increasing paranoia and transportation issues She also has not been back to see pulmonary in over a year and she is advised to reach out to them to schedule a follow up appointment [facility] Echocardiogram done last year (2023) came out grossly normal (6) Degeneration of lumbar or lumbosacral intervertebral disc: Code(s): M51.37 - Other intervertebral disc degeneration, lumbosacral region Category: Medical Qualifiers: Disc-related pain type: discogenic back pain only Qualified Code(s): M51.370 - Other intervertebral disc degeneration, lumbosacral region with discogenic back pain only Plan: Reinforced activity and weight lifting restrictions to avoid aggravating her back pain As her low back pain has reportedly gotten worse lately, will send patient for repeat lumbar spine x-rays for further evaluation Continue Morphine ER 60 mg every 12 hours and? Percocet 10-325 mg 1 tablet 3 times a day as needed for breakthrough pain (7) Migraine: Code(s): G43.909 - Migraine, unspecified, not intractable, without status migrainosus Category: Medical Qualifiers: Migraine type: unspecified Status migrainosus presence: without status migrainosus Intractability: not intractable Qualified Code(s): G43.909 - Migraine, unspecified, not intractable, without status migrainosus Plan: Continue Fioricet 1 tablet 2 to 3 times a day as needed Patient is also on Amitriptyline 100 mg daily at bedtime for headache prophylaxis Follow-up with Neurology as scheduled (8) Bulging of cervical intervertebral disc: Comment: Repeat cervical spine MRI done on 01/10/2018 showed a new small right paracentral disc protrusion at C4-C5 that contacts the right ventral cord but no central canal stenosis noted; the rest of the findings are unchanged from before Code(s): M50.20 - Other cervical disc displacement, unspecified cervical region Category: Medical Plan: Patient states that her current medications help to keep her neck pains manageable (9) Impaired fasting glucose: Code(s): R73.01 - Impaired fasting glucose Category: Medical Plan: Reinforced low calorie/low carb diet Will recheck her FBS and HgbA1c in 2-3 months for follow-up (10) Vitamin B12 deficiency: Code(s): E53.8 - Deficiency of other specified B group vitamins Category: Medical Plan: Continue Vitamin B12 tablets 1000 mg QD (11) Allergic rhinitis: Code(s): J30.9 - Allergic rhinitis, unspecified Category: Medical Qualifiers: Allergic rhinitis trigger: pollen Allergic rhinitis seasonality: unspecified Qualified Code(s): J30.1 - Allergic rhinitis due to pollen Plan: Continue Loratadine 10 mg QD PRN and Fluticasone nasal spray QD PRN (12) Vitamin D deficiency: Code(s): E55.9 - Vitamin D deficiency, unspecified Category: Medical Plan: Continue Vitamin D3 2000 units QD (13) Insomnia: Code(s): G47.00 - Insomnia, unspecified Category: Medical Qualifiers: Insomnia type: unspecified Qualified Code(s): G47.00 - Insomnia, unspecified Plan: Sleep hygiene reinforced Continue Amitriptyline 100 mg daily at bedtime (14) Posttraumatic stress disorder: Code(s): F43.10 - Post-traumatic stress disorder, unspecified Category: Medical Plan: Continue Sertraline 100 mg 2 tablets daily (15) Anxiety: Code(s): F41.9 - Anxiety disorder, unspecified Category: Medical Plan: Continue Lorazepam 2 mg once a day in AM as needed Sertraline also helps with her anxiety (16) Depression: Code(s): F32.9 - Major depressive disorder, single episode, unspecified Category: Medical Qualifiers: Depression Type: major depressive disorder Major depression recurrence: recurrent Active/Remission status: currently active Major depression episode severity: unspecified Qualified Code(s): F33.9 - Major depressive disorder, recurrent, unspecified Plan: Continue Sertraline 200 mg QD Follow-up with Psychiatry as scheduled (17) Obesity (BMI 30-39.9): Code(s): E66.9 - Obesity, unspecified Category: Medical Plan: Reinforced diet; exercise and weight loss are not realistic as patient's activity level and exercise tolerance is very poor (18) Colon cancer screening: Code(s): Z12.11 - Encounter for screening for malignant neoplasm of colon Category: Medical Plan: Patient declined going for a screening colonoscopy she states that she is not going to be able to comply with the bowel prep that she needs to do on the day prior to her colonoscopy She agrees instead to go for Cologuard testing - ordered (19) Breast cancer screening by mammogram: Code(s): Z12.31 - Encounter for screening mammogram for malignant neoplasm of breast Category: Medical Plan: Annual mammogram ordered - patient is scheduled to have this done sometime in mid November 2024 (20) Osteoporosis screening: Code(s): Z13.820 - Encounter for screening for osteoporosis Category: Medical Plan: Will send patient for bone density scan for osteoporosis screening Plan Follow up in 3 months Orders: Orders XR lumbar spine 2-3V 09/27/24 M54.50 - Low back pain, unspecified XR DEXA axial skeleton 09/27/24 Z78.0 - Asymptomatic menopausal state Comprehensive [place]. Panel Fast 12/03/24 E78.00 - Pure hypercholesterolemia, unspecified Lipid Panel 12/03/24 E78.00 - Pure hypercholesterolemia, unspecified UA CC w/rflx Micro + Cult 12/03/24 R30.0 - Dysuria MM tomosynthesis screening BI 09/27/24 Z12.31 - Encounter for screening mammogram for malignant neoplasm of breast Complete Blood Count Auto Diff 12/03/24 D64.9 - Anemia, unspecified TSH reflex Free T4 12/03/24 E78.00 - Pure hypercholesterolemia, unspecified Vitamin D 25-OH Total 12/03/24 E55.9 - Vitamin D deficiency, unspecified Vitamin B12 and Folate 12/03/24 E53.8 - Deficiency of other specified B group vitamins Hemoglobin A1c 12/03/24 R73.01 - Impaired fasting glucose Referrals Cologuard Test Z12.11 - Encounter for screening for malignant neoplasm of colon
== END 2024-09-27 17:07 | disposition home or self-care (01) ==
LOC: HO.HMCH 16:12
PROVIDERS: PCP Internal Medicine; Visit Provider Internal Medicine
DX: Z00.00 Encounter for general adult medical examination without abnormal findings (principal); F33.9 Major depressive disorder, recurrent, unspecified; I25.10 Atherosclerotic heart disease of native coronary artery without angina pectoris; E78.2 Mixed hyperlipidemia; I10 Essential (primary) hypertension; R06.09 Other forms of dyspnea; M51.370 Other intervertebral disc degeneration, lumbosacral region with discogenic back pain only; G43.909 Migraine, unspecified, not intractable, without status migrainosus; M50.20 Other cervical disc displacement, unspecified cervical region; R73.01 Impaired fasting glucose; E53.8 Deficiency of other specified B group vitamins; J30.1 Allergic rhinitis due to pollen

== ENCOUNTER → 2024-09-27 16:12 | Outpatient (BNVA) | payer MEDICARE, MEDICAID, SELFPAY | PROVIDERS: PCP Internal Medicine; Visit Provider Internal Medicine | DX: Z00.00 Encounter for general adult medical examination without abnormal findings (principal); I25.10 Atherosclerotic heart disease of native coronary artery without angina pectoris; I10 Essential (primary) hypertension; E78.2 Mixed hyperlipidemia; R06.09 Other forms of dyspnea; M51.370 Other intervertebral disc degeneration, lumbosacral region with discogenic back pain only; G43.909 Migraine, unspecified, not intractable, without status migrainosus; M50.20 Other cervical disc displacement, unspecified cervical region; R73.01 Impaired fasting glucose; E53.8 Deficiency of other specified B group vitamins; J30.1 Allergic rhinitis due to pollen; E55.9 Vitamin D deficiency, unspecified; G47.00 Insomnia, unspecified; F43.10 Post-traumatic stress disorder, unspecified; F41.9 Anxiety disorder, unspecified; F33.9 Major depressive disorder, recurrent, unspecified; E66.9 Obesity, unspecified | CPT/HCPCS: 96127; 99396 ==

== ENCOUNTER 2025-04-24 13:31 | Outpatient (REF) | payer MEDICARE, MEDICAID, SELFPAY ==
[2025-04-24 13:46] LABS: MANUAL DIFF FLAG NO
[2025-04-24 13:57] LABS: Hematocrit 42.5 % (37.0-47.0); Hemoglobin 13.5 g/dl (12.0-16.0); Imm Gran Abs Auto 0.07 X10*3/uL (0.00-0.03); Imm Gran Pct Auto 0.8 % (0.0-0.4); Lymphocytes Absolute Auto 2.8 X10*3/uL (1.2-4.9); Mean Corpuscular HGB Conc 31.8 g/dl (31.0-35.0); Mean Corpuscular Hemoglobin 28.1 pg (27.0-33.0); Mean Corpuscular Volume 88.5 fL (80.0-98.0); NRBC Abs Auto 0.000 X10*3/uL (0.0-0.012); NRBC Pct Auto 0.0 /100WBC (0.0-0.2); Platelet Count 260 X10*3/uL (160-400); Red Blood Count 4.80 X10*6/uL (4.20-5.50); White Blood Count 8.8 X10*3/uL (4.8-10.8)
[2025-04-24 14:54] LABS: Appearance Urine Clear; Glucose Urine UA Negative (Negative); PH 7.0 (5.0-9.0); Specific Gravity - Urine 1.015 (1.005-1.025); UMIC TRIGGER UACC YES
[2025-04-24 15:29] LABS: UACC Culture Trigger YES
[2025-04-24 16:31] LABS: Alanine Aminotransferase 111 U/L (0-31); Albumin Level 4.9 g/dL (3.5-5.0); Alkaline Phosphatase 87 U/L (39-117); Anion Gap 16 (12-20); Aspartate Amino Transferase 110 U/L (5-31); Blood Urea Nitrogen 22 mg/dL (9-16); Calcium 10.2 mg/dL (8.4-10.2); Carbon Dioxide 24 mmol/L (22-29); Chloride 107 mmol/L (96-108); Cholesterol 155 mg/dL (<200); Estimated Glomerular Filt Rate > 60; HDL Cholesterol 43 mg/dL (>40); Potassium 4.7 mmol/L (3.3-5.1); Sodium 142 mmol/L (135-145); Total Protein 8.0 g/dL (6.5-8.0); Triglycerides 211 mg/dL (<150)
[2025-04-24 17:06] LABS: Folate 9.4 ng/mL (> or = 4.0); Vitamin B12 196 pg/mL (200-900)
== END 2025-04-24 13:32 | disposition home or self-care (01) ==
LOC: HO.LAB 13:31
PROVIDERS: PCP Internal Medicine; Visit Provider Internal Medicine
DX: I25.10 Atherosclerotic heart disease of native coronary artery without angina pectoris (principal); E78.2 Mixed hyperlipidemia; I10 Essential (primary) hypertension; R06.09 Other forms of dyspnea; M51.379 Other intervertebral disc degeneration, lumbosacral region without mention of lumbar back pain or lower extremity pain; G43.909 Migraine, unspecified, not intractable, without status migrainosus; M50.20 Other cervical disc displacement, unspecified cervical region; R73.01 Impaired fasting glucose; M79.674 Pain in right toe(s); E53.8 Deficiency of other specified B group vitamins; E55.9 Vitamin D deficiency, unspecified; J30.1 Allergic rhinitis due to pollen; G47.00 Insomnia, unspecified; F43.10 Post-traumatic stress disorder, unspecified; F41.9 Anxiety disorder, unspecified; F33.9 Major depressive disorder, recurrent, unspecified; E66.9 Obesity, unspecified; D64.9 Anemia, unspecified; Z68.37 Body mass index [BMI] 37.0-37.9, adult
CPT/HCPCS: 36415; 80053; 80061; 81001; 82306; 82607; 82746; 83036; 84443; 85025; 87086; 87088; 87186; 96127; 99212

== ENCOUNTER 2025-04-24 14:12 | Outpatient (AMB) | payer MEDICARE, MEDICAID, SELFPAY ==
[2025-04-24 14:55] VITALS: BP 110/68; PULSE 73; O2SAT 96; BMI 37.3
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
== END 2025-04-24 15:46 | disposition home or self-care (01) ==
LOC: HO.HMCH 14:12
PROVIDERS: PCP Internal Medicine; Visit Provider Internal Medicine
DX: I25.10 Atherosclerotic heart disease of native coronary artery without angina pectoris (principal); E78.2 Mixed hyperlipidemia; I10 Essential (primary) hypertension; R06.09 Other forms of dyspnea; M51.379 Other intervertebral disc degeneration, lumbosacral region without mention of lumbar back pain or lower extremity pain; G43.909 Migraine, unspecified, not intractable, without status migrainosus; M50.20 Other cervical disc displacement, unspecified cervical region; R73.01 Impaired fasting glucose; M79.674 Pain in right toe(s); E53.8 Deficiency of other specified B group vitamins; E55.9 Vitamin D deficiency, unspecified; J30.1 Allergic rhinitis due to pollen; G47.00 Insomnia, unspecified; F43.10 Post-traumatic stress disorder, unspecified; F41.9 Anxiety disorder, unspecified; F33.9 Major depressive disorder, recurrent, unspecified; E66.9 Obesity, unspecified